=== PATIENT | female | born 2000 | race Caucasian/White ===

== ENCOUNTER 2024-01-08 00:26 | Emergency (ER) | payer OTHER, SELFPAY ==
[2024-01-08 00:40] VITALS: BP 120/76; PULSE 75; RESP 18; TEMP 36.7; O2SAT 98; BMI 26.8
== END 2024-01-08 07:15 | disposition left against medical advice (07) ==
PROVIDERS: Emergency Provider Emergency Medicine
DX: T14.8XXA Other injury of unspecified body region, initial encounter (principal); W55.03XA Scratched by cat, initial encounter; Y93.9 Activity, unspecified; Y92.9 Unspecified place or not applicable; Y99.9 Unspecified external cause status; Z53.21 Procedure and treatment not carried out due to patient leaving prior to being seen by health care provider
CPT/HCPCS: 99281

== ENCOUNTER 2024-10-01 10:05 | Outpatient (AMB) | payer OTHER, SELFPAY ==
--- NOTE | 2024-10-01 10:08 | MHC.PC.OV ---
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 Intake Note: Pt is here today as a New Patient to [facility]/PE Is last menstrual period known: Yes Last menstrual period: 09/19/24 Allergies No Known Allergies Allergy (Verified 10/01/24 10:28) Medication List - Last Reconciled 10/01/24 by Lesley Hopper MD norethindrone ac-eth estradiol 1-20 mg-mcg () 1 tab PO DAILY Tobacco use date assessed: 10/01/24 Dental Screening Dental Screen Date: 10/01/24 Did you have a dental visit in the last 12 months?: Yes Did you have a dental problem in the last 6 months where you did not have access to dental care?: No Was dental information given to patient?: Patient has dentist HPI WATER 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 She recently moved here from [place], is in the . She has been feeling well with no complaints at present time, requesting referral to an OBGYN. [facility] Medical History Uses control Surgical History (Updated 10/01/24 @ 10:33 by Lesley Hopper MD) No pertinent past surgical history Family History (Updated 10/01/24 @ 10:35 by Lesley Hopper MD) Father Mental health disorder Alcoholism Mother Graves disease Sister Hypothyroidism (acquired) Social History (Updated 10/01/24 @ 10:37 by Lesley Hopper MD) Housing: House Patient Tobacco Use Status: Never used Tobacco e-Cigarette/Vaping Use: Never Used service: No Current occupational status: employed Current occupation: Works for [employer] Cognitive needs: No Hearing needs: No Vision needs: Yes Female Reproductive History Menstrual Date of last menstrual period: 09/19/24 control method: pills Other: pap done in [facility] 09/2023 Questionnaire PHQ-9 Over the last 2 weeks, how often have you been bothered by any of the following problems? 1. Little interest or pleasure in doing things: not at all 2. Feeling down, depressed, or hopeless: not at all 3. Trouble falling or staying asleep, or sleeping too much: not at all 4. Feeling tired or having little energy: several days 5. Poor appetite or overeating: not at all 6. Feeling bad about yourself - or that you are a failure or have let yourself or your family down: not at all 7. Trouble concentrating on things, such as reading the newspaper or watching television: not at all 8. Moving or speaking so slowly that other people could have noticed. Or the opposite - being so fidgety or restless that you have been moving around a lot more than usual: not at all 9. Thoughts that you would be better off or of hurting yourself in some way: not at all Total score: 1 Depression Screening Interpretation: Negative Depression Screening Done: Yes Source: Developed by Drs. Dion Boone, Patty Pisano, Alejandro Tracy and colleagues, with an educational diana from [employer]. Thrive Questionnaire Date Thrive assessed: 09/24/24 I am a: Patient What is your living situation today?: I have a steady place to live Within the past 12 months, did the food you bought not last and you didn't have the money to get more?: Never true Within the past 12 months, did you worry whether your food would run out before you got money to buy more?: Never true Do you have trouble paying for medicines?: No Do you have trouble getting transportation to medical appointments?: No Do you have trouble paying your heating and electricity bill?: No Do you have trouble taking care of your child, family member or friend?: No Do you have trouble with day-to-day activities such as bathing, preparing meals, shopping, managing finances, etc.?: No Are you currently unemployed and looking for a job?: No Are you interested in more education?: No Please select the resources that you would like help with: None Currently or been in a relationship where the following occur: I choose not to answer THRIVE Score: 0 AUDIT C Alcohol Use Questionnaire (AUDIT-C) 1. How often do you have a drink containing alcohol?: Never 3. How often do you have six or more drinks on one occasion?: Never Total Score: 0 CADENCE-7 AMB Questionnaire CADENCE-7 Date CADENCE - 7 assessed: 10/01/24 Feeling nervous, anxious, or on edge: 0 = Not at all Not being able to stop or control worryin = Not at all Worrying too much about different things: 0 = Not at all Trouble relaxin = Not at all Being so restless that it is hard to sit still: 0 = Not at all Becoming easily annoyed or irritable: 0 = Not at all Feeling afraid as if something awful might happen: 0 = Not at all Total CADENCE-7 score (0-4 normal; 5-9 mild; 10-14 moderate; 15-21 severe): 0 Source: Developed by Drs. Dion Boone, Patty Pisano, Alejandro Tracy and colleagues, with an educational diana from [employer]. CADENCE-7 Assessment Billing CADENCE-7 Assessment Tool: CADENCE-7 Assessment 78564 Review of Systems Const Denies body aches, Denies fatigue, Denies fever(s), Denies headache(s) and Denies weakness Eyes Denies change in vision, Denies eye discharge and Denies itchy eyes ENT Denies dizziness, Denies headache(s), Denies nasal congestion and Denies nasal discharge Card Denies chest pain, Denies lightheadedness, Denies palpitations and Denies dyspnea Resp Denies cough and Denies dyspnea GI Denies abdominal pain, Denies change in bowel habits and Denies heartburn Denies hematuria, Denies urinary frequency, Denies dysuria and Denies urinary urgency Musc Reports no additional complaints Skin/Breast Denies breast pain, Denies breast mass, Denies lesions and Denies rash Neuro Denies dizziness, Denies headache(s) and Denies weakness Psych Reports no additional complaints Endo Denies fatigue, Denies polydipsia, Denies polyuria and Denies palpitations Sunny/Lymph Denies easy bruising Aller/Immun Denies itchy eyes and Denies seasonal rhinorrhea Physical exam (Primary Care) Vital Signs: Last Vital Signs Temp 98.3 F 10/01/24 10:11 Pulse 98 10/01/24 10:11 Resp 16 10/01/24 10:11 BP 90/70 10/01/24 10:11 Pulse Ox 99 10/01/24 10:11 Oxygen Delivery Method Room Air 02/26/25 10:11 BMI result Body Mass Index 28.3 Tobacco/Smoking Status: Tobacco use Status Tobacco use date assessed 10/01/24 10/01/24 10:17 Patient Tobacco Use Status Never used Tobacco 10/01/24 10:37 e-Cigarette/Vaping Use Never Used 10/01/24 10:37 PHQ-9: PHQ-9 Score PHQ-9: Total score 1 10/05/24 16:03 Depression Screening Interpretation: Negative Thrive Assessment: Date of Thrive Assessment Date Thrive assessed 09/24/24 10/01/24 10:09 Currently or been in a relationship where the following occur: I choose not to answer Advance Care Planning discussion: Completed/Scanned Date of discussion: 10/01/24 Who was present: Patient Forms completed: Health Care Proxy Time spent: 16-45 minutes Actual minutes spent: 2 Const General: no acute distress and alert Orientation/consciousness: patient oriented x3 HENMT Head: Yes normocephalic Ears: external ears normal, TM's normal bilaterally and EAC's normal General nose exam: Normal external nose present and No nasal discharge present Face and sinus: Yes face symmetric Mouth: Normal oral and palatal mucosa present, oropharynx normal and moist mucous membranes Eyes General: appearance normal, both eyes and all related structures Eyelids: Yes eyelids normal Conjunctivae: conjunctivae normal Sclerae: sclerae normal Pupils: Equal, round and reactive pupils present EOM: EOMs intact bilaterally Neck Neck: Yes full ROM, Yes no lymphadenopathy and Yes supple Thyroid: Thyroid normal Chest Breast/axilla palpation: normal palpation of the breasts Resp Effort & Inspection: normal respiratory effort and able to speak in complete sentences Auscultation: clear to auscultation bilaterally Cardio Rate: regular rate Rhythm: regular rhythm Heart sounds: S1 normal heart sound present and S2 normal heart sound present GI Palpation (GI): Soft to palpation, nontender, no guarding and no masses Auscultation: normal bowel sounds General: Yes no CVA tenderness Back/Spine/Pelvis Back: no CVA tenderness and No back tenderness Skin General skin exam: no rashes or lesions noted Neuro General: patient oriented x3, gait normal, moves all extremities, Normal light touch and pain sensation, no focal motor deficits and CN's II-XI intact bilaterally Cranial nerves: Yes Equal, round and reactive pupils present Cognition (Neuro): normal cognition Gait exam (Neuro): Normal gait present Motor exam (neuro): 5/5 motor strength present throughout Extrem General: Yes normal to inspection, Yes full ROM, Yes no joint enlargement, Yes no pedal edema and Yes normal gait Psych Appearance: grossly normal and well kempt Mental Status: mental status grossly normal Speech and movement: Normal speech and movement present Affect: normal affect Attitude: cooperative Thought process: Normal thought process present Thought content: Normal thought content present Coding Level of Care Code New Pt Prev Care 18-39yr([id number] Diagnoses Annual visit for general adult medical examination with abnormal findings Z00.01 Uses control Z78.9 Screening for malignant neoplasm of cervix Z12.4 Encounter for counseling regarding advance directives Z71.89 Additional Codes CADENCE-7 Assessment Billing - CADENCE-7 Assessment Tool: CADENCE-7 Assessment 80715 ([id number]) Vital Signs *Quality* - Advance Care Planning discussion: Completed/Scanned ([id number]) Vital Signs *Quality* - Time spent: 16-45 minutes ([id number]) Assessment & Plan Assessment & Plan (1) Annual visit for general adult medical examination with abnormal findings: Code(s): Z00.01 - Encounter for general adult medical examination with abnormal findings Plan: Will check appropriate labs. Recommended dental visit every 6 months and regular eye exams, at least every 2 years. Take adequate calcium in diet and vitamin-D 3 at 2000 IU per cap once a day, in addition to weight-bearing exercises to help maintain good muscle tone and weight control. Instructed to do self-breast exam, and recommended to get yearly mammogram, starting at age 40. Referred to [facility] for her routine Pap and pelvic exam and for surveillance on control pills . Patient received her flu vaccine in [place] in 04/25/2024. Did not get any further COVID boosters, up-to-date with her Tdap. (2) Uses control: Code(s): Z78.9 - Other specified health status Category: Social Hx Plan: Currently on control pills, advised to wear travel compression socks when going on long plane rides or car rides due to increased risk for getting blood clots (3) Screening for malignant neoplasm of cervix: Code(s): Z12.4 - Encounter for screening for malignant neoplasm of cervix Plan: Referred to [facility] for her routine Pap and pelvic exam (4) Encounter for counseling regarding advance directives: Code(s): Z71.89 - Other specified counseling Plan: Initiated the conversation about Advanced Directives. Advanced Directives help patients prepare for current and future decisions about their medical treatment and place of care. Discussed with patient that it is a process where a patients current condition and prognosis are reviewed, their wishes for information regarding their illness are elicited, and likely medical dilemmas are presented and options discussed. Healthcare proxy form completed today. The form can be amended as needed, reviewed yearly and make changes as needed Orders: Orders Complete Blood Count Auto Diff 10/01/24 Z00.01 - Encounter for general adult medical examination with abnormal findings, Z71.89 - Other specified counseling, Z78.9 - Other specified health status IRON PROFILE 10/01/24 Z00.01 - Encounter for general adult medical examination with abnormal findings, Z71.89 - Other specified counseling, Z78.9 - Other specified health status Lipid Panel 10/01/24 Z00.01 - Encounter for general adult medical examination with abnormal findings, Z71.89 - Other specified counseling, Z78.9 - Other specified health status Comprehensive [place]. Panel Fast 10/01/24 Z00.01 - Encounter for general adult medical examination with abnormal findings, Z71.89 - Other specified counseling, Z78.9 - Other specified health status Vitamin D 25-OH Total 10/01/24 Z00.01 - Encounter for general adult medical examination with abnormal findings, Z71.89 - Other specified counseling, Z78.9 - Other specified health status Referrals [facility] Referral Z00.01 - Encounter for general adult medical examination with abnormal findings, Z12.4 - Encounter for screening for malignant neoplasm of cervix, Z71.89 - Other specified counseling, Z78.9 - Other specified health status
[2024-10-01 10:11] VITALS: BP 90/70; PULSE 98; RESP 16; TEMP 36.8; O2SAT 99; BMI 28.3
--- OUTSIDE RECORDS SUMMARY | 2024-10-01 12:09 | XMS_ITS | Continuity of Care Document ---
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 It does not include entries that were removed or entered in error. Problem Status Onset Date Problem Type Date of Resolution Comments Source Bilateral myopia of eyes Active Condition 0006C-Joint [facility] Bilateral regular astigmatism Active Condition 0006C-Joint B [facility] Contraception Active Condition [facility] Generalized body aches Active Condition [facility] Loss of scalp hair Active Condition [facility] Morbid obesity Active Condition Unknown Organization Vitreous floaters of left eye Active Condition 0006C-Joint B [facility] Well female adult Active Condition 0094 C-[facility] Myopia, bilateral Active Condition [facility] Regular astigmatism, bilateral Active Condition [facility] Pain in right knee Active Condition [facility] Medications Combined list of outpatient medications from [facility] and [facility] facilities.Medications provided include 1) outpatient medications from the last 15 months, and 2) patient-reported medications. Medication Details Route Status Patient Instructions Prescription Expires Prescription Number Last Dispense Date Ordering Provider Order Date Order Qty Source AMOX TR-POTASSIU M CLAVULANATE (AMOXICILLI N/POTASSIUM CLAV), 875-125 MG, TABLET, ORAL, [facility], 20 ea. BOTTLE Active [id number] 4 2023 14 Pharmac y Data Transac tion Service Facilit y ibuprofen 0 total refill(s ), Audrey acosta Discont inued 12/22/20222022 0006C-[facility]int Base [facility] ibuprofen 600 mg oral tablet 1 tab(s), Oral, BID, # 40 tab(s), 0 total refill(s ), Maintena karla, Pharmacy : [facility] Oral (given by mouth) Ordered 3 2022 40.0 0094C[facility] Microgestin 1/20 oral tablet 1 tab(s), Oral, Daily, # 84 tab(s), 3 total refill(s ), Maintena nee, Pharmacy : [facility] Oral (given by mouth) Discont inued 06/27/2022 2 2021 84.0 0006C[facility] oral tablet 1 tab(s), Oral, Daily, # 84 tab(s), 3 total refill(s ), Maintena nee, Pharmacy : [facility] Oral (given by mouth) Ordered 3 2021 84.0 0094C[facility] Microgestin 1/20 oral tablet tab(s), Oral, Daily, 0 total refill(s ), Maintena nce Oral (given by mouth) Discont inued 12/20/20202020 [facility] 1/20 oral tablet 1 tab(s), Oral, Daily, # 84 tab(s), 3 total refill(s ), [facility] Oral (given by mouth) Ordered 09/21/2024 4 2023 84.0 0094C[facility] Microgestin 1/20 oral tablet 1 tab(s), Oral, Daily, # 84 tab(s), 3 total refill(s ), [facility] Oral (given by mouth) Discont inued 03/17/2022 2 2021 84.0 0006C[facility] predniSONE 50 mg oral tablet 1 tab(s), Oral, Daily, X 3 days, # 3 tab(s), 0 total refill(s ), Acute, Pharmacy : [facility] Oral (given by mouth) Complet ed 12/25/2022 3 2022 3.0 0094C[facility] Allergies, Adverse Reactions, Alerts Combined list of allergies from [facility] facilities. It does not include entries that were removed or entered in error. Substance Category Reaction Severity Reaction type Status Date Reported Comments Source No Known Allergies Drug allergy (disorder) active 04/02/2023 [facility] Immunizations Combined list of available immunizations from the Department of Defense and Veterans Affairs facilities. Immunization Series Date Given Administered By Site Reaction Lot Number CVX Code Drug Central Lab Technician Status Comments Source COVID Vaccine Pfizer 2020 FLORYRYSHAILESHINNE Y Shoul elsi, left (delt oid) [id number] PFIZER complet ed COVID Vaccine Pfizer 01/14/21 Given 0006C-[facility] COVID Vaccine Pfizer 2020 VICAKINPMCGEO RGE Shoul elsi, right (delt oid) [id number] PFIZER complet ed COVID Vaccine Pfizer 12/24/20 Given 0006C-[facility] [facility] Results Combined list of recent chemistry, hematology and other laboratory results from [facility] and [facility], ranging from 15 months to all on record, depending upon the facility. Order Name Results Value Reference Range Date Interpretation Specimen Comments Source Molecula r Infectio us Disease GC NAAT Not Detected 10 (09/20/23 11:07 AM) 09/20 N Interpretiv e Data: NAAT = Nucleic acid amplificati on test Reference Value: Not Detected A Detected result indicates that DNA of Chlamydia trachomatis (CT) and/or Neisseria gonorrhoeae (GC) is present in the specimen tested and strongly supports a diagnosis of chlamydial/ gonorrheal infection. A Not Detected result indicates that DNA for CT and/or GC was not detected in the specimen. An indetermina te result indicates that a specimen contains inhibitory substances that prevent nucleic acid target extraction and/or amplificati on and detection. See the Limitation s section in the Lab Guide for known interfering substances. The performance of this assay has not been evaluated in adolescents less than 14 years of age. This report is intended for use in clinical monitoring or management of patients; it is not intended for use in medico-lega l application s. The assay has not been evaluated with patients who are currently being treated with antimicrobi al agents active against CT or GC as well as patients with a history of hysterectom y. In general, this assay should not be used to assess therapeutic success or failure since nucleic acids from these organisms may persist for 3 weeks or more following antimicrobi al therapy. The predictive value of an assay depends on the prevalence of the disease in any particular population. In settings with a high prevalence of sexually transmitted disease, positive assay results have a high likelihood of being true positives. In settings with a low prevalence of sexually transmitted disease, or in any setting in which a patient's clinical signs and symptoms or risk factors are inconsisten t with gonococcal or chlamydial urogenital infection, positive results should be carefully assessed and the patient retested by other methods (e.g., culture for Neisseria gonorrhoeae ), if appropriate . The prevalence for all specimens tested in this laboratory is 5% for CT and 0.5% for GC. At this prevalence, the [facility] r estimates 5% the overall sensitivity and specificity for CT to be 94.1% and 99.6% respectivel y. For GC the sensitivity and specificity rates are 97.1% and he 99.8%. The Positive Predictive Value and the Negative Predictive Value calculated by the [facility] r using the above clinical trial data are 92% and 99.7% for CT and 82% and 100% for GC. Results should be interpreted in conjunction with other laboratory and clinical information . A negative result does not exclude the possibility of infection. Improper specimen collection, concurrent antibiotic therapy, presence of inhibitors, or low numbers of organisms in the specimen may cause false-negat jasmyne results. If clinical indications strongly suggest gonococcal or chlamydial infection, additional specimens should be collected for testing. Testing of urine specimens with this method is not intended to replace a cervical exam and endocervica l sampling for diagnosis of urogenital infection. A first catch urine specimen is acceptable but may detect up to 10% fewer infections when compared with vaginal and endocervica l swab specimens. Methodology : NAAT Notifiable result/cond ition for Local/State PH department. Notify your Local public health immediately for proper notificatio n. 56[facility]A-[place] [facility] EPILAB 24tidyula r Infectio us Disease Chlamydia NAAT Not Detected (09/20/23 11:07 AM) 09/20 N 56[facility]A-[place] [facility] EP[facility]AB AP Specimen s AP Cyto JOB CHECKER Patient: Crow Foley Specimen #: [id number] Patholog ist: Accessio n: 4 [facility] DEPARTME NT OF PATHOLOG Y [address] [place] [address] Cytology Gynecolo gic Report Patient: Crow Foley Specimen #: [id number] [facility] ID:: [id number] Encounte r #: [id number] Taken: 4 11:02 /Age: 6 2000 (Age: 23) Received : 4 11:22 Physicia n(s:): DESTINY Garcia NURSE Reported : 4 Specimen (s) Received Taken Rec Thin Prep - Cervical w/ reflex HPV 4 11:02 4 11:22 Final Diagnosi s Thin Prep - Cervical w/ reflex HPV: Satisfac tory for evaluati on; endocerv ical componen t present. Negative for intraepi thelial lesion or malignan cy. This Pap test was evaluate d with the assistan ce of the Thin Prep Imaging System. Elect ronicall y Signed by Carol Rubin * Clinical Diagnosi s and History WNL Prior History Signed Out Specimen # Interpre tation 12/28/19 21 [id number] Negative for Intraepi thlial Lesion or Malignan cy CPT Codes: A; 30384 The Pap test is a screenin g test for precurso rs of squamous cell carcinom a with an irreduci ble false negative rate of around 5%. It is not designed to detect glandula r lesions. A negative test does not ensure that no disease is present. 09/20-[facility] Chemistr y T4 Free Direct.LC 1.09 ng/dL 04/02 Result Comment: Performed At: [facility] [address] [place], [place] [id number] Dony Gould MD Ph:[phone] 00 -[facility] Chemistr y TSH LC 2.170 uIU/mL 04/02-[facility] Chemistr y T3 Total 1.64 ng/mL 0.80 - 2.00 04/02 N Interpretiv e Data: METHODOLOGY : Testing performed by electrochem ilLaclede Groupn t immunoassay (ECLIA). 5600A-[place] [facility] EPILAB Hematolo gy WBC 5.2 10^3/uL 4.5 - 11.0103 06/27 N [facility] Hematolo gy RBC 4.74 10^6/uL 3.97 - 5.69303 06/27 N [facility] Hematolo gy MCHC 34.0 g/dL 32.0 - 36.0 06/27 N [facility] Hematolo gy MPV 8.5 fL 6.8 - 10.2 06/27 N [facility] Hematolo gy RDW 12.7 % 12.0 - 14.6 06/27 N [facility] Hematolo gy Platelets 226 10^3/uL 150 - 065255 06/27 N [facility] Hematolo gy MCV 86.6 fL 80.0 - 100.0 06/27 N [facility] Hematolo gy MCH 29.4 pg 28.0 - 34.0 06/27 N [facility] Hematolo gy Hemoglobin 13.9 g/dL 12.0 - 16.0 06/[address] Hematolo gy Hematocrit 41.1 % 36.0 - 46.0 06/27 N [facility] Chemistr y TIBC LC 410 ug/dL 06/[address] Chemistr y Iron Sat LC 25 % 06/27 Result Comment: Performed At: 01 [facility] [address], [place] [id number] Dony Gould MD Ph:[phone] [facility] Chemistr y Iron Lvl.LC 102 ug/dL 06/[address] Chemistr y UIBC LC 308 ug/dL 06/[address] Hematolo gy Monocyte % Auto 4.3 % 3.5 - 11.4 06/[address] Hematolo gy Eosinophil % Auto 1.8 % 0.0 - 5.0 06/27 [facility] Hematolo gy Lymphocyte % Auto 33.1 % 15.8 - 44.5 06/27 [facility] Hematolo gy Neutrophil % Auto 60.2 % 40.0 - 80.0 06/27 [facility] Hematolo gy [place] Absolute 0.2 0.1 - 0.8 06/27 [facility] Hematolo gy Eos Absolute 0.1 10^3/uL 0.0 - 0.4103 06/27 [facility] Hematolo gy Neutro Absolute 3.2 10^3/uL 1.8 - 7.0103 06/27 [facility] Hematolo gy Lymph Absolute 1.7 10^3/uL 0.8 - 3.2103 06/27 [facility] Hematolo gy Basophil % Auto 0.6 % 0.0 - 2.7 06/27 [facility] Hematolo gy Baso Absolute 0.0 x10^3/mc L 0.0 - 0.2103 06/27 [facility] Chemistr y Thyrotropi n.EPI 1.250 uIU/mL 06/27 Result Comment: INTERPRETAT ION(S): Recommend: TPO/Thyrope roxidase Antibody when TSH result is > 4.2 uIU/mL Performed by: Epidmiology Laboratory Service [facility] [address] [place] [id number] [facility] Chemistr y Vit B12 Lvl.LC 321 pg/mL 06/27 [facility] Chemistr y Folate.LC 10.5 ng/mL 06/27 Result Comment: A serum folate concentrati on of less than 3.1 ng/mL is considered to represent clinical deficiency. Performed At: 01 [facility] [address], [place] [id number] Dony Gould MD Ph:[phone] [facility] Chemistr y Potassium Lvl 4.4 mmol/L 3.5 - 5.1 06/[address] Group Chemistr y Alk Phos 57.0 U/L 38.0 - 126.0 06/[address] Chemistr y Albumin 4.3 g/dL 3.5 - 5.0 06/[address] Chemistr y Chloride 102 mmol/L 98 - 107 06/[address] Chemistr y CO2 30.0 mmol/L 22.0 - 30.0 06/[address] Chemistr y BUN 11.0 mg/dL 7.0 - 17.0 06/[address] Chemistr y Bilirubin Total 0.40 mg/dL 0.20 - 1.30 06/[address] Chemistr y Sodium 139 mmol/L 137 - 145 06/[address] Chemistr y Calcium 10.5 mg/dL 8.4 - 10.2 06/[address] Chemistr y ALT 12.0 U/L 0.0 - 35.0 06/[address] Chemistr y Glucose Lvl 91 mg/dL 74 - 106 06/[address] [place] [address] Chemistr y AST 23 U/L 14 - 36 06/[address] [place] [address] Chemistr y Protein Total 8.2 g/dL 6.0 - 8.3 06/[address] Chemistr y Globulin 3.9 2.4 - 3.5 06/[address] Chemistr y A/G Ratio 1.1 06/[address] Chemistr y AGAP 11.4 10.0 - 20.0 06/[address] Chemistr y Creatinine Level 0.80 mg/dL 0.52 - 1.04 06/[address] Chemistr y eGFR CKD EPI 106 mL/min/1 .73_m2 06/27 Interpretiv e Data: Estimated Glomerular Filtration Rate (eGFR) calculated using the 2020 Chronic Kidney Disease-Epi demiology (CKD-EPI) Collaborati on creatinine equation; units of measure are mL/min/1.73 m2. Results are only valid for adults (e18 years) whose serum creatinine is in steady state.? eGFR calculation s are not valid for patients with acute kidney injury and for patients on dialysis. ?Creatinine -based estimates of kidney function may also be inaccurate in patients with reduced creatinine generation due to decreased muscle mass (e.g., malnutritio n, severe hypoalbumin emia, sarcopenia, chronic neuromuscul ar disease, amputations , severe heart failure or liver disease) and in patients with increased creatinine generation due to increased muscle mass (e.g., muscle builders, anabolic steroids) or increased dietary intake. As drug clearance is proportiona l to total GFR and not GFR indexed to body surface area (BSA), in individuals with a BSA substantial ly different than 1.73 m2, drug dosing should be based the reported eGFRvalue de-indexed from BSA by multiplying by the individual s BSA and dividing by 1.73. CKD is diagnosed based on abnormaliti es of kidney structure or function, present for >3 months, with implication s for health and disease. CKD is classified and staged based on cause, eGFR and albuminuria (quantified as urine albumin to creatinine ratio). An eGFR >60 mL/min/1.73 m2 in the absence of increased urine albumin excretion or structural abnormaliti es does not represent CKD.eGFR (mL/min/1.7 3 m2) CKD stage Interpretat ion e90 G1 Normal 60-89 G2 Mild decrease 45-59 G3A Mild to moderate decrease 30-44 G3B Moderate to severe decrease 15-29 G4 Severe decrease <15 G5 Kidney failure 0094A-[facility] AP Specimen s Cytologic JOB CHECKER.[facility] Col: [id number] THIN PREP-CE( LBC CERVICAL ) Hcp: Mel MACEDO Loc: REMOTE L Ranjanai eugenia Lab: [place] [address] [id number] BAG [id number] SL Accessio n #: [id number] CYTO JOB CHECKER C:[id number] [facility] Report Patient: CROW FOLEY Specimen #: [id number] Patholog ist: Accessio n: 1 [facility] DEPARTME NT OF PATHOLOG Y [address] [place] [address] Cytology Gynecolo gic Report Patient: CROW FOLEY Specimen #: [id number] [facility] ID:: [id number] /Age: 6 2000 (Age: 20) Reported : 1 Physicia n(s:): BEHZAD GARZA Specimen (s) Received LBC CERVICAL (WITH REFLEX HPV), THINPREP VIAL Final Diagnosi s LBC CERVICAL (WITH REFLEX HPV), THINPREP VIAL: Satisfac tory for evaluati on; endocerv ical componen t present. Negative for intraepi thelial lesion or malignan cy. This Pap test was evaluate d with the assistan ce of the Thin Prep Imaging System. Elect ronicall y Signed by Angel Coombs The Pap test is a screenin g test for precurso rs of squamous cell carcinom a with an irreduci ble false negative rate of around 5%. It is not designed to detect glandula r lesions. A negative test does not ensure that no disease is present. CPT Codes: 55210-FA ;89418 12/20 0006A-[facility] Molecula r Infectio us Disease GC NAAT.EPI NEGATIVE 12/20 Result Comment: INTERPRETAT ION(S): NAAT = Nucleic acid amplificati on test A positive result indicates that DNA of Chlamydia trachomatis (CT) and/or Neisseria gonorrhoeae (GC) is present in the specimen tested and strongly supports a diagnosis of chlamydial/ gonorrheal infection. A negative result indicates that DNA for CT and/or GC was not detected in the specimen. The performance of this assay has not been evaluated in adolescents less than 14 years of age. This report is intended for use in clinical monitoring or management of patients; it is not intended for use in medico-lega l application s. The assay has not been evaluated with patients who are currently being treated with antimicrobi al agents active against CT or GC as well as patients with a history of hysterectom y. In general, this assay should not be used to assess therapeutic success or failure since nucleic acids from these organisms may persist for 3 weeks or more following antimicrobi al therapy. The predictive value of an assay depends on the prevalence of the disease in any particular population. In settings with a high prevalence of sexually transmitted disease, positive assay results have a high likelihood of being true positives. In settings with a low prevalence of sexually transmitted disease, or in any setting in which a patient's clinical signs and symptoms or risk factors are inconsisten t with gonococcal or chlamydial urogenital infection, positive results should be carefully assessed and the patient retested by other methods (e.g., culture for Neisseria gonorrhoeae ), if appropriate . The prevalence for all specimens tested in this laboratory is 5% for CT and 0.5% for GC. At this prevalence, the [facility] r estimates the overall sensitivity and specificity for CT to be 94.1% and 99.6% respectivel y. For GC the sensitivity and specificity rates are 97.1% and 99.8%. The Positive Predictive Value and the Negative Predictive Value calculated by the [facility] r using the above clinical trial data are 92% and 99.7% for CT and 82% and 100% for GC. Results should be interpreted in conjunction with other laboratory and clinical information . A negative result does not exclude the possibility of infection. Improper specimen collection, concurrent antibiotic therapy, presence of inhibitors, or low numbers of organisms in the specimen may cause false-negat jasmyne results. If clinical indications strongly suggest gonococcal or chlamydial infection, additional specimens should be collected for testing. A result of inconclusiv e indicates that a new specimen should be collected. Testing of urine specimens with this method is not intended to replace a cervical exam and endocervica l sampling for diagnosis of urogenital infection. A first catch urine specimen is acceptable but may detect up to 10% fewer infections when compared with vaginal and endocervica l swab specimens. Methodology : NAAT Notifiable result/cond ition for Local/State department. Notify your local public health immediately for proper notificatio n. Performed by: [facility]olog [facility] Bldg. [address] [address] [place] [address] 0006A[facility] [place] Disease Chlamydia NAAT.EPI NEGATIVE 12/20 Result Comment: INTERPRETAT ION(S): 0006A-[facility] [employer] [facility] [place] us Disease Lima Species Negative 7 (12/20/20 11:02 AM) 12/20 N Interpretiv e Data: A positive result for Lima, Gardnerella and/or Trichomonas means nucleic acid for Lima species (C. albicans, C. glabrata, C. kefyr, C. krusei, C. parapsilosi s, or C. tropicalis) , G. vaginalis, and/or T. vaginalis, respectivel y, is present in the sample and indicates the patient has candidiasis , bacterial vaginosis, and/or trichomonia sis. Simultaneou s infections by more than one organism are common; therefore, a positive test indicating the presence of one of the above does not rule out the presence of other organisms. Women with a vaginal discharge should be evaluated for risk factors of cervicitis and pelvic inflammator y disease, and if present, evaluated for other organisms, including Neisseria gonorrhoeae and Chlamydia trachomatis . Negative results for Lima, Gardnerella or Trichomonas tests suggest the patient does not have candidiasis , bacterial vaginosis and/or trichomonia sis, respectivel y. The performance of this test on patient specimens collected during or immediately after antimicrobi al therapy is unknown. The presence or absence of Lima species, G. vaginalis or T. vaginalis nucleic acid cannot be used as a test for therapeutic success or failure. The Affirm VPIII Microbial Identificat ion Test is for use with vaginal swab specimens; samples must arrive in the lab within 1 hour of collection. Test results may be affected by improper specimen collection, handling and/or storage conditions. The diagnostic value of this assay, although suggestive, is not diagnostic. Results should be interpreted in conjunction with other clinical and laboratory data available to the clinician such as pH, amine odor, clue cells and vaginal discharge characteris tics. 0006A-[employer] [facility] Disease Gardnerell a vaginalis Negative 8 (12/20/20 11:02 AM) 12/20 N Interpretiv e Data: A positive result for Lima, Gardnerella and/or Trichomonas means nucleic acid for Lima species (C. albicans, C. glabrata, C. kefyr, C. krusei, C. parapsilosi s, or C. tropicalis) , G. vaginalis, and/or T. vaginalis, respectivel y, is present in the sample and indicates the patient has candidiasis , bacterial vaginosis, and/or trichomonia sis. Simultaneou s infections by more than one organism are common; therefore, a positive test indicating the presence of one of the above does not rule out the presence of other organisms. Women with a vaginal discharge should be evaluated for risk factors of cervicitis and pelvic inflammator y disease, and if present, evaluated for other organisms, including Neisseria gonorrhoeae and Chlamydia trachomatis . Negative results for Lima, Gardnerella or Trichomonas tests suggest the patient does not have candidiasis , bacterial vaginosis and/or trichomonia sis, respectivel y. The performance of this test on patient specimens collected during or immediately after antimicrobi al therapy is unknown. The presence or absence of Lima species, G. vaginalis or T. vaginalis nucleic acid cannot be used as a test for therapeutic success or failure. The [place] VPIII Microbial Identificat ion Test is for use with vaginal swab specimens; samples must arrive in the lab within 1 hour of collection. Test results may be affected by improper specimen collection, handling and/or storage conditions. The diagnostic value of this assay, although suggestive, is not diagnostic. Results should be interpreted in conjunction with other clinical and laboratory data available to the clinician such as pH, amine odor, clue cells and vaginal discharge characteris tics. 0006A-[facility] Infectio us Disease Trichomona s vaginalis Negative 9 (12/20/20 11:02 AM) 12/20 N Interpretiv e Data: A positive result for Lima, Gardnerella and/or Trichomonas means nucleic acid for Lima species (C. albicans, C. glabrata, C. kefyr, C. krusei, C. parapsilosi s, or C. tropicalis) , G. vaginalis, and/or T. vaginalis, respectivel y, is present in the sample and indicates the patient has candidiasis , bacterial vaginosis, and/or trichomonia sis. Simultaneou s infections by more than one organism are common; therefore, a positive test indicating the presence of one of the above does not rule out the presence of other organisms. Women with a vaginal discharge should be evaluated for risk factors of cervicitis and pelvic inflammator y disease, and if present, evaluated for other organisms, including Neisseria gonorrhoeae and Chlamydia trachomatis . Negative results for Lima, Gardnerella or Trichomonas tests suggest the patient does not have candidiasis , bacterial vaginosis and/or trichomonia sis, respectivel y. The performance of this test on patient specimens collected during or immediately after antimicrobi al therapy is unknown. The presence or absence of Lima species, G. vaginalis or T. vaginalis nucleic acid cannot be used as a test for therapeutic success or failure. The [place] VPIII Microbial Identificat ion Test is for use with vaginal swab specimens; samples must arrive in the lab within 1 hour of collection. Test results may be affected by improper specimen collection, handling and/or storage conditions. The diagnostic value of this assay, although suggestive, is not diagnostic. Results should be interpreted in conjunction with other clinical and laboratory data available to the clinician such as pH, amine odor, clue cells and vaginal discharge characteris tics. 0006A-[facility] Vital Signs Combined list of inpatient and outpatient Vital Signs from Department of Defense and Veterans Affairs, ranging from 12 months to all on record, depending upon the facility. Vital Sign Value Date Comments Source Blood Pressure Manual Automatic 04/02/2023 12:29: [address] [place] [address] Temperature Tympanic 37 Ashanti 04/02/2023 12:29:[address] [place] [address] BP Site Left arm 04/02/2023 12:29:[address] [place] [address] Respiratory Rate 16 br/min 04/02/2023 12:29:[address] [place] [address] Mean Arterial Pressure, Calc 100 mm[Hg] 04/02/2023 12:29:[address] [place] [address] Peripheral Pulse Rate 79 bpm 04/02/2023 12:29: [address] [place] [address] Group Systolic Blood Pressure 131 mm[Hg] 04/02/20 23 12:29:[address] [place] [address] Group Diastolic Blood Pressure 84 mm[Hg] 023 12:29:[address] [place] [address] Group Systolic Blood Pressure 113 mm[Hg] 06/27/20 19:50:00 [id number] Diastolic Blood Pressure 73 mm[Hg] 022 19:50:00 [facility] BP Site Left arm 06/27/2022 19:50:00 [facility] Temperature Temporal Artery 36.2 Ashanti 06/27/2022 19:50:00 [facility] Mean Arterial Pressure, Calc 86 mm[Hg] 06/27/2022 19:50:00 [facility] Blood Pressure Manual Automatic 06/27/2022 19:50:00 [facility] Respiratory Rate 16 br/min 06/27/2022 19:50:00 [facility] Peripheral Pulse Rate 84 bpm 06/27/2022 19:50:00 [facility] Systolic Blood Pressure 117 mm[Hg] 12/23/19 19:45:00 [facility] Diastolic Blood Pressure 74 mm[Hg] 023 19:45:00 [facility] BP Site Left arm 12/22/2022 19:45:00 [facility] Temperature Temporal Artery 36.7 Sahanti 12/22/2022 19:45:00 [facility] Blood Pressure Manual Automatic 12/22/2022 19:45:00 [facility] Peripheral Pulse Rate 90 bpm 12/22/2022 19:45:00 [facility] Respiratory Rate 16 br/min 12/22/2022 19:45:00 [facility] Mean Arterial Pressure, Calc 88 mm[Hg] 12/22/2022 19:45:00 [facility] BP Site Right arm 09/20/2023 22:10:00 [facility] Systolic Blood Pressure 122 mm[Hg] 09/20/19 22:10:00 [facility] Diastolic Blood Pressure 79 mm[Hg] 024 22:10:00 [facility] Blood Pressure Manual Automatic 09/20/2023 22:10:00 [facility] Peripheral Pulse Rate 93 bpm 09/20/2023 22:10:00 [facility] Mean Arterial Pressure, Calc 93 mm[Hg] 09/20/2023 22:10:00 [facility] Respiratory Rate 14 br/min 09/20/2023 22:10:00 [facility] Temperature Oral 36.8 Ashanti 09/20/2023 22:10:00 [facility] Temperature Oral 36.6 Ashanti 12/20/2020 18:23:[address] [place] [address] Blood Pressure Manual Automatic 12/20/2020 18:23:[address] [place] [address] BP Site Right arm 12/20/2020 18:23:[address] [place] [address] Systolic Blood Pressure 130 mm[Hg] 12/21/19 18:23:[address] [place] [address] Diastolic Blood Pressure 86 mm[Hg] 021 18:23:[address] [place] [address] Respiratory Rate 20 br/min 12/20/2020 18:23:[address] [place] [address] Peripheral Pulse Rate 86 bpm 12/20/2020 18:23:[address] [place] [address] Mean Arterial Pressure, Calc 101 mm[Hg] 12/20/2020 18:23:[address] [place] [address] Respiratory Rate 14 br/min 07/09/2020 23:49:[address] [place] [address] Peripheral Pulse Rate 87 bpm 07/09/2020 23:49:[address] [place] [address] Mean Arterial Pressure, Calc 90 mm[Hg] 07/09/2020 23:49:[address] [place] [address] BP Site Right arm 07/09/2020 23:49:[address] [place] [address] Systolic Blood Pressure 112 mm[Hg] 07/09/20 20 23:49:[address] [place] [address] Diastolic Blood Pressure 79 mm[Hg] 020 23:49:[address] [place] [address] Blood Pressure Manual Automatic 07/09/2020 23:49:[address] [place] [address] Encounters Combined list of: 1) Encounters from Department of Veterans Affairs facilities going backup to the last 18 months, not all VA inpatient encounters are included; 2) Encounters from the Department of Defense facilities going backup to 280 months. Location Location Details Encounter Type Encounter Number Reason For Visit Attending Provider ADM Date DC Date Status Disposition Source [facility]) OUTPATIENT [id number] EFMP klarissa BATESKHADIJAH CHOWDHURY Vidya 07/21 Released w/o Limitations [facility]) [facility]) OUTPATIENT [id number] !EFMP HAMILTON MAIN 08/07 Released w/o Limitations [facility]) [facility] ) OUTPATIENT [id number] right knee pain JEMIMA PADILLA 10/08 Released w/o Limitations [facility]) [facility] ) TELE CONSULT [id number] Notes Entered by: BASILIO SELF ACE 13 Oct 2019 1318 ------- ------- ------- ------- -- JULITO BRAR 10/12 Other Not Elsewhere Classified [facility] ) TELE CONSULT [id number] Notes Entered by: RAJEEV PADGETT 03 Dec 2019 0926 ------- ------- ------- ------- -- NETWORK RESULTS PHYSICA L THERAPY 22 OCT 2019 LOOK IN LUCIO HUNTER 12/02 [facility] ) TELE CONSULT [id number] Notes Entered by: YASMANY COLE 12 Dec 2019 1124 ------- ------- ------- ------- -- MRI result SUDARSHAN ANDRADE 12/11 [facility]) [facility]) OUTPATIENT [id number] ESHA MOTA 01/07 Released w/o Limitations [facility] ptometr y Clinic [facility]) [facility]) TELE CONSULT [id number] Notes Entered by: ЕКАТЕРИНА BURNETT 28 Jan 2020 1439 ------- ------- ------- ------- -- JULITO HARMON 01/27 Other Not Elsewhere Classified [facility]) [facility]) OUTPATIENT [id number] Notes Entered by: HARLEY SMITH 28 Jan 2020 1632 ------- ------- ------- ------- -- JOY PEARCE 01/28 Sick at Home/Quarter s [facility]) [facility]) TELE CONSULT [id number] Notes Entered by: NATALIIA HOGUE 02 Feb 2020 0926 ------- ------- ------- ------- -- COVID-1 9 Lab Results TANIA HOGUE 02/01 Released to Self Care [facility] ) TELE CONSULT [id number] Notes Entered by: BASILIO SELF ACE 02 Feb 2020 1250 ------- ------- ------- ------- -- JULITO HARMON 02/01 Other Not Elsewhere Classified [facility]) [facility] ) OUTPATIENT [id number] Nausea after sleep [facility] 02/10 Released w/o Limitations [facility]) [facility](Ort hopedic Clinic) OUTPATIENT [id number] Pain in right knee PERLITA MATTHEW 02/10 Released w/o Limitations [facility](O rthoped ic Clinic) [facility] ) TELE CONSULT [id number] Notes Entered by: LISET LAYNE 08 Mar 2020 1811 ------- ------- ------- ------- -- Lab results BEHZAD LAWRENCE 03/09 [facility]) [facility] ) TELE CONSULT [id number] Notes Entered by: LISET LAYNE 22 Mar 2020 1302 ------- ------- ------- ------- -- Rad Results RADHA URIBE 03/22 Other Not Elsewhere Classified [facility](F [facility]) [facility](Gas troentero logy Clinic) OUTPATIENT [id number] Unspeci fied abdomin al pain ELOY SANTOS 03/24 Released w/o Limitations [facility](G astroen terolog y Clinic) [facility] ZEESHAN Garcia Between Visit [id number] 10/04 Discharge Disposition: Home or Self Care [facility] [place] Procedures Combined list of: 1) Procedures from Department of Veterans Affairs facilities going back up to thelast 18 months, not all VA non-surgical procedures are included; 2) All procedures from the Department of Defense facilities. Procedure Procedure Type Code Date Perfomer Comments Sourmario e No data available for this section Ambulato ry Pharmacy Non-Physician Phone Call To Patient/Provider Brief (5-10min) Non-Physician Phone Call To Patient/Provider Brief (5-10min) [id number] [facility] Ophthalmological New Patient Start Comprehensive Care Ophthalmological New Patient Start Comprehensive Care [id number] [facility] Determination Of Refractive State Determination Of Refractive State 48597 ESHA SANDOVAL DoD Waiver services; not otherwise specified (NOS) ELOY SANTOS DoD WAIVER SERVICES; NOT OTHERWISE SPECIFIED (NOS) 020 DoD TELE ASSESS & MGT SRV PROV QUAL NONPHYS HLTH CARE PRO TO EST PAT,PARENT,GUARD NOT ORIG REL ASSESS & MGT SRV PROV W/IN PREV 7 DAYS NOR LEAD ASSESS & MGT SRV/PX W/IN NXT 24 HR/SOON APT;5-10 MIN MED DIS 020 DoD TELE ASSESS & MGT SRV PROV QUAL NONPHYS HLTH CARE PRO TO EST PAT,PARENT,GUARD NOT ORIG REL ASSESS & MGT SRV PROV W/IN PREV 7 DAYS NOR LEAD ASSESS & MGT SRV/PX W/IN NXT 24 HR/SOON APT;5-10 MIN MED DIS 020 DoD DETERMINATION OF REFRACTIVE STATE 020 DoD TELE ASSESS & MGT SRV PROV QUAL NONPHYS HLTH CARE PRO TO EST PAT,PARENT,GUARD NOT ORIG REL ASSESS & MGT SRV PROV W/IN PREV 7 DAYS NOR LEAD ASSESS & MGT SRV/PX W/IN NXT 24 HR/SOON APT;5-10 MIN MED DIS 020 DoD Social History Combined list of available smoking, tobacco, and other social history from Department of Defense and Veterans Affairs facilities. Social History Type Response Date Comment Sour e Smoking Status Never (less than 100 in lifetime) 07/09/2020 Unknown Organization Sex Representation Female 03/16/2020 Unknow n Organization Sexual Orientation Ambula tory Pharmacy Gender identity Ambulator y Pharmacy This section is an empty social history section. DoD Assessment and Plan Combined list of future care activities from Department of Defense and Veterans Affairs facilities (e.g., assessment and plan notes, appointments, orders, and referrals). Additional future care activities may be listed in the Plan of Care section. Result Assessment and Plan Date Source Assessment and Plan Extracted from:Title : JOB CHECKER: PAP, BC refill Author: DESTINY BARRIOS Date: 09/20/23 Encounter for screening for infections with a predominantly sexual mode of transmission -Screening per CDC recommendations ? -Pt aware she will be contacted if results return positive from labs collected at visit today, otherwise pt informed labs visible on Revision3 online. -Verbalized understanding.? ? Ordered: Chlamydia/GC NAAT Panel ? Encounter for screening for malignant neoplasm of cervix Pap HX: December 2020: NILM/-- ? -She was instructed?that if her pap smear results are normal she will receive a message in Revision3, ? encouraged to register on the platform if she has not already done so. -If her results return abnormal she will be contacted by PHONE with a plan of care -Informed that at a minimum she will need a WWE in 1-3 years to screen for ovarian and breast cancers. ? ? -Reviewed findings from today's exam and discussed presumptive plan considering her history with NORMAL pap smears, her next PAP will be due in?3 years,? ? ?Fe?2026.? ? She verbalized understanding of information/results and had no further questions or concerns. ? Ordered: AP Cytology JOB CHECKER ? Encounter for surveillance of contraceptive pills -Pt reports satisfaction with OCP regimen and desires a refill. ? -Reviewed counseling on the risks and benefits of OCPs.? -Pt?aware of?the potential side effects -She was instructed to return to the clinic if experiences side effects.?? -Aware that she should use condoms regardless if not in a committed relationship as OCPs do not protect against STIs. ? -Patient verbalized understanding and had no further questions or concerns. ? Orders: norethindrone-ethinyl estradiol(Microgestin 1/20 oral tablet), 1 tab(s), Oral, Daily, # 84 tab(s), 3 total refill(s), Maintenance, 1 tab(s) Oral Daily, Pharmacy: [facility] [Federal Rx: #84 last filled 09/20/23] Disposition:? 1. Is member deployable? Y? 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 3. Does member meet retention standards? Y? 4. Can member complete FA? Y? .............................. .............................. ............ DESTINY G. NURSE, , [facility]? [address]? [place], [address] ? .............................. .............................. ............. ? Extracted from:Title: Hair loss concerns. Author: JEAN DASILVA NP Date: 04/02/23 1.?Loss of scalp hair pat reports having what she feels is excessive. she does have pics with some hair after showering with some hair noted in brush and hand. - they moved here in May 27, and this started in Sep, but has worsened over past several months. - washes hair 2-3x/ week, not daily, does take a biotin supplement as well as Vits D, C and multi.? - discussed possible causes including stress, post .? she has not had a and does not feel she is stressed in any way. - she has had tsh completed in Jun 27, we will repeat to compare, her mother has been treated for Hasimotos thyroid issues. - she feels the?areas at zoroastrianism are thinning and more sparse, but no specific areas of baldness.? - new hair growth noted along temples/ area of concern. - recommended to continue on her vits and supplements. - most likely is normal degree of shedding, but pat was encouraged to continue to monitor. ? Ordered: T3 Total Level TSH+Free T4 [id number] ? Extracted from:Title: generalized body aches, post viral syndrome Author: JEAN DASILVA NP Date: 12/22/22 1.?Generalized body aches Pat reports feeling crappy all week, started with headache and nausea last Sunday.? On Sunday had developed fever of 102 with body aches. last fever was on Sun, 2 days ago.? has been taking tylenol, ?all symptoms have resolved except the body aches. tylenol is not helping at all for that. - PE is unremarkable, pat is pleasant today - she did home test for covid that was Negative, denies loss of taste or smell, but appetite is nonexistent. - only symptom really left is body aches, but is very significant to her doing anything.? - suggested it is still most likely something viral, antibiotics not indicated at this time.? - instructed to push fluids and hydrate well. - will have her do 3 day regimen of oral steroid to start tomorrow.? on 4th day can start the motrin bid w/ food for another 4-5 days.? Advised of possible side effects of steroid treatment.? will plan to start in am, taking 1 motrin with dinner tonight.? - Encouraged hydration, hygiene, and hand washing - Pt to RTC if symptoms persist for re-evaluation of symptoms, at that time will consider alternative treatment. - Pt to seek medical attention if Fever, SOB, difficulty breathing, difficulty swallowing occur. ? Orders: ibuprofen(ibuprofen 600 mg oral tablet), 1 tab(s), Oral, BID, # 40 tab(s), 0 total refill(s), Maintenance, 1 tab(s) Oral BID, Pharmacy: [email or web address] [Not filled] predniSONE(predniSONE 50 mg oral tablet), 1 tab(s), Oral, Daily, X 3 days, # 3 tab(s), 0 total refill(s), Acute, 1 tab(s) Oral Daily,x3 days, Pharmacy: [email or web address] [Not filled] Extracted from:Title: establish care, labs requested, med renewal Author: JEAN DASILVA NP Date: 06/27/22 1.?Well female adult pat is here to establish care, she is wanting some base line labs drawn to see where she is. - her mother and sister both have thyroid problems she is concerned. - she has been anemic before and has since stopped eating red meat, so would like to check that also. - overall healthy young lady with no concerning findings identified on physical exam. ? ? Ordered: CBC w/ Diff Comprehensive Metabolic Panel Iron and TIBC [id number] TSH w/Reflex Testing EPI P7812 Vit B12 and Folate [id number] ? 2.?Contraception pat reports last pap was December 2020, she denies any problems with the BC. - periods are regular, coming at the same times.? - Denies having any pregnancies. - LMP was 23 Jun 2022.? - pat denies vaping or smoking. ? ? ? Ordered: norethindrone-ethinyl estradiol(Microgestin 1/20 oral tablet), 1 tab(s), Oral, Daily, # 84 tab(s), 3 total refill(s), Maintenance, 1 tab(s) Oral Daily, Pharmacy: [email or web address] [Not filled] ? Extracted from:Title: [facility] Office Visit Note Author: ESHA SANDOVAL, OD Date: 04/27/21 1.?Vitreous floaters of left eye ?Round white focal area in superonasal periphery suggestive of vitreal retinal tuft vs operculated hole vs chorioretinal scar. Unclear if this lesion is causing paracentral fixed spot in patients vision. It was noted 1 y/a when pt was asymptomatic. Referring to [address] Lei for evaluation today. Ordered: Determination Refractive State 35976 [facility] Xm&Eval Comprhnsv Estab Pt 1/> 43896 ? 2.?Bilateral myopia of eyes Stable OU.?Gave spec Rx Ordered: Determination Refractive State 24455 Ophthalmological Medical Xm&Eval Comprhnsv Estab Pt 1/> 04866 ? 3.?Bilateral regular astigmatism Stable OU,??Gave new spec Rx Ordered: Determination Refractive State 62667 Ophthalmological Medical Xm&Eval Comprhnsv Estab Pt 1/> 90628 ? Extracted from:Title: Office Clinic Note - Well Woman Exam, Vaginal Pain Author: BEHZAD MACEDO PA-C Date: 12/20/20 1.?Well female adult Per ACOG recommendations, pap in 3 years if today's result is negative.? Stop at age 64 years.? Recommend annual pelvic and clinical breast exam, and malini every 1 to 2 years beginning age 40 per recommendations; sooner prn concerns. Ordered: Office Visit Level 3 Est 49774 ? 2.?Vaginal pain ?Pt presents with c/o o vaginal pain with intercourse.?Stable in clinic.?PE unremarkable. No CMT. Vaginosis swab neg. GC/Chlamydia still pending. Pain may also be 2/2 to rough intercourse. Advised pt to ensure proper lubrication during sex. Also suggested avoidance of the positions that are less painful and?rough sex.?i will follow-up with her pending results.?She will f/u sooner for any new/worsening symptoms. Return/ER precautions given. All questions answered. Pt concurred.? Ordered: Chlamydia/GC NAAT Panel EPI P5897 Office Visit Level 3 Est 63290 ? 3.?Menstrual cramps Pt presents with c/o of menstrual cramping, no heavy bleeding but is passing small clots. Currently on BC.?PE unremarkable. Labs still pending. There are no immediate?concerns for uterine masses at this time or anemia. Advised taking Motrin 1-2 days prior to onset of cycle and con't through first few days of cycle.?She?will f/u prn if no improvement or for any new/worsening symptoms. Return/ER precautions given. All questions answered. Pt concurred.? Ordered: Office Visit Level 3 Est 22102 ? 4.?Papanicolaou smear taken Ordered: Cytologic JOB CHECKER [facility] 2486 Office Visit Level 3 Est 66998 ? 5.?Repeated prescription ?BC refilled as previously prescribed. Ordered: Microgestin /20 oral tablet, 1 tab(s), Oral, Daily, # 84 tab(s), 3 total refill(s), Maintenance, 1 tab(s) Oral Daily, Pharmacy: [facility] [Federal Rx: #84 last filled 12/20/20] Office Visit Level 3 Est 83449 ? Extracted from:Title: Headache F/U - Office Clinic Note Author: BEHZAD MACEDO Date: 07/23/20 1.?Headache ?20 y/o female presents for HAYES f/u. Currently? Asymptomatic with no red flags. No immediate concerns at this time. Encouraged pt to continue with previous treatment/management. She will f/u prn for any new/worsening symptoms. Return/ER Precautions given.?All questions answered. Pt concurred. ? Previous 09 Jul 2020: 1. Headache History and physical exam most consistent with: secondary headache with some potential migrainous features, though at this time I would not classify these headaches as migraines. Food or lack of food may be a possible trigger. Pt stood up in exam room to perform tandem gait and was lightheaded for 1-2 seconds upon standing - she has not yet had anything to eat or drink today and I think this was likely orthostatic in nature secondary to mild dehydration.? ? Benign clinical/neuro exam today - no localizing symptoms or red flags.? Encouraged continued HAYES diary to track possible triggers? ? bring to f/u appointment - pt to note particular attention to food, timing of eating and fluid consumption. Reviewed general recommendations: 1. Encouraged plenty of sleep, regular scheduled meals. 2. Push fluids. 3. Early use of OTC meds such as Tylenol/NSAIDS - may take 2 tabs ibuprofen 200mg for moderate/severe headache 4. Follow-up in 2 weeks for HAYES diary review. Pt will be leaving [facility] Jul and flying to [place] for the holidays. 5. Daily neck stretches - sports med handout provided 6. Wear glasses when watching TV ? May consider daily prophylactic if frequent HAYES s . Seek ER care for severe HAYES, vision changes, neuro deficits, fever, neck stiffness, trouble moving or speaking, any other severe/worsening sx. Will consider referral to Neurology if symptoms persist despite medication management. ? Ordered: Office Visit Level 3 Est 88022 ? Extracted from:Title: Ambulatory Patient Education Author: BEHZAD MACEDO Date: 07/23/20 Patient Education Materials Follows: Extracted from:Title: Office Clinic Note Author: JEMIMA PADILLA NP Date: 07/09/20 1.?Headache History and physical exam most consistent with: secondary headache with some potential migrainous features, though at this time I would not classify these headaches as migraines.?Food or lack of food may be a possible trigger. Pt stood up?in exam?room to?perform tandem gait and was?lightheaded for 1-2 seconds?upon standing - she has not yet had anything to eat or drink today and I think this was likely orthostatic in nature secondary to mild dehydration.? ? Benign?clinical/neuro exam?today - no localizing symptoms or red flags.? Encouraged continued HAYES diary?to track possible triggers? ? bring to f/u appointment - pt to note particular attention to food, timing of eating and fluid consumption. Reviewed general recommendations: 1. ?Encouraged plenty of sleep, regular scheduled meals. 2. ?Push fluids. 3. ?Early use of?OTC?meds?such as Tylenol/NSAIDS ?- may take 2 tabs ibuprofen 200mg for moderate/severe headache ? 4. ?Follow-up in?2?weeks for HAYES diary review. Pt will be leaving [facility] Jul and flying to [place] for the holidays. 5.? Daily neck stretches - sports med handout provided 6.? Wear glasses when watching TV ? May consider daily prophylactic?if frequent HAYES s . Seek ER care for severe HAYES, vision changes, neuro deficits, fever, neck stiffness, trouble moving or speaking, any other severe/worsening sx. ??Will consider referral to Neurology if symptoms persist despite medication management. ? 10/01/2024 0094C[facility] Assessment and Plan Extracted from:Title : JOB CHECKER: PAP, BC refill Author: DESTINY BARRIOS Date: 09/20/23 Encounter for screening for infections with a predominantly sexual mode of transmission -Screening per CDC recommendations ? -Pt aware she will be contacted if results return positive from labs collected at visit today, otherwise pt informed labs visible on Revision3 online. -Verbalized understanding.? ? Ordered: Chlamydia/GC NAAT Panel ? Encounter for screening for malignant neoplasm of cervix Pap HX: December 2020: NILM/-- ? -She was instructed?that if her pap smear results are normal she will receive a message in Revision3, ? encouraged to register on the platform if she has not already done so. -If her results return abnormal she will be contacted by PHONE with a plan of care -Informed that at a minimum she will need a WWE in 1-3 years to screen for ovarian and breast cancers. ? ? -Reviewed findings from today's exam and discussed presumptive plan considering her history with NORMAL pap smears, her next PAP will be due in?3 years,? ? ?Feb?2026.? ? She verbalized understanding of information/results and had no further questions or concerns. ? Ordered: AP Cytology JOB CHECKER ? Encounter for surveillance of contraceptive pills -Pt reports satisfaction with OCP regimen and desires a refill. ? -Reviewed counseling on the risks and benefits of OCPs.? -Pt?aware of?the potential side effects -She was instructed to return to the clinic if experiences side effects.?? -Aware that she should use condoms regardless if not in a committed relationship as OCPs do not protect against STIs. ? -Patient verbalized understanding and had no further questions or concerns. ? Orders: norethindrone-ethinyl estradiol(Microgestin / oral tablet), 1 tab(s), Oral, Daily, # 84 tab(s), 3 total refill(s), Maintenance, 1 tab(s) Oral Daily, Pharmacy: [facility] [Federal Rx: #84 last filled 09/20/23] Disposition:? 1. Is member deployable? Y? 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 3. Does member meet retention standards? Y? 4. Can member complete FA? Y? .............................. .............................. ............ DESTINY BARRIOS, , [facility]? [address]? [place], [address] ? .............................. .............................. ............. ? Extracted from:Title: Hair loss concerns. Author: JEAN DASILVA ELECTRICAL LINE SPLICER Date: 04/02/23 1.?Loss of scalp hair pat reports having what she feels is excessive. she does have pics with some hair after showering with some hair noted in brush and hand. - they moved here in May 27, and this started in Sep, but has worsened over past several months. - washes hair 2-3x/ week, not daily, does take a biotin supplement as well as Vits D, C and multi.? - discussed possible causes including stress, post .? she has not had a and does not feel she is stressed in any way. - she has had tsh completed in Jun 27, we will repeat to compare, her mother has been treated for Hasimotos thyroid issues. - she feels the?areas at zoroastrianism are thinning and more sparse, but no specific areas of baldness.? - new hair growth noted along temples/ area of concern. - recommended to continue on her vits and supplements. - most likely is normal degree of shedding, but pat was encouraged to continue to monitor. ? Ordered: T3 Total Level TSH+Free T4 [id number] ? Extracted from:Title: generalized body aches, post viral syndrome Author: JEAN DASILVA ELECTRICAL LINE SPLICER Date: 12/22/22 1.?Generalized body aches Pat reports feeling crappy all week, started with headache and nausea last Sunday.? On Sunday had developed fever of 102 with body aches. last fever was on Sun, 2 days ago.? has been taking tylenol, ?all symptoms have resolved except the body aches. tylenol is not helping at all for that. - PE is unremarkable, pat is pleasant today - she did home test for covid that was Negative, denies loss of taste or smell, but appetite is nonexistent. - only symptom really left is body aches, but is very significant to her doing anything.? - suggested it is still most likely something viral, antibiotics not indicated at this time.? - instructed to push fluids and hydrate well. - will have her do 3 day regimen of oral steroid to start tomorrow.? on 4th day can start the motrin bid w/ food for another 4-5 days.? Advised of possible side effects of steroid treatment.? will plan to start in am, taking 1 motrin with dinner tonight.? - Encouraged hydration, hygiene, and hand washing - Pt to RTC if symptoms persist for re-evaluation of symptoms, at that time will consider alternative treatment. - Pt to seek medical attention if Fever, SOB, difficulty breathing, difficulty swallowing occur. ? Orders: ibuprofen(ibuprofen 600 mg oral tablet), 1 tab(s), Oral, BID, # 40 tab(s), 0 total refill(s), Maintenance, 1 tab(s) Oral BID, Pharmacy: [facility] [Not filled] predniSONE(predniSONE 50 mg oral tablet), 1 tab(s), Oral, Daily, X 3 days, # 3 tab(s), 0 total refill(s), Acute, 1 tab(s) Oral Daily,x3 days, Pharmacy: [email or web address] [Not filled] Extracted from:Title: establish care, labs requested, med renewal Author: JEAN DASILVA, ELECTRICAL LINE SPLICER Date: 06/27/22 1.?Well female adult pat is here to establish care, she is wanting some base line labs drawn to see where she is. - her mother and sister both have thyroid problems she is concerned. - she has been anemic before and has since stopped eating red meat, so would like to check that also. - overall healthy young lady with no concerning findings identified on physical exam. ? ? Ordered: CBC w/ Diff Comprehensive Metabolic Panel Iron and TIBC [id number] TSH w/Reflex Testing EPI P7812 Vit B12 and Folate [id number] ? 2.?Contraception pat reports last pap was December 2020, she denies any problems with the BC. - periods are regular, coming at the same times.? - Denies having any pregnancies. - LMP was 23 Jun 2022.? - pat denies vaping or smoking. ? ? ? Ordered: norethindrone-ethinyl estradiol(Microgestin 1/20 oral tablet), 1 tab(s), Oral, Daily, # 84 tab(s), 3 total refill(s), Maintenance, 1 tab(s) Oral Daily, Pharmacy: [email or web address] [Not filled] ? Extracted from:Title: Eye Care APSO Office Visit Note Author: ESHA SANDOVAL, OD Date: 04/27/21 1.?Vitreous floaters of left eye ?Round white focal area in superonasal periphery suggestive of vitreal retinal tuft vs operculated hole vs chorioretinal scar. Unclear if this lesion is causing paracentral fixed spot in patients vision. It was noted 1 y/a when pt was asymptomatic. Referring to [address] Lei for evaluation today. Ordered: Determination Refractive State 54337 Ophthalmological Medical Xm&Eval Comprhnsv Estab Pt 1/> 97354 ? 2.?Bilateral myopia of eyes Stable OU.?Gave spec Rx Ordered: Determination Refractive State 57302 Ophthalmological Medical Xm&Eval Comprhnsv Estab Pt 1/> 54453 ? 3.?Bilateral regular astigmatism Stable OU,??Gave new spec Rx Ordered: Determination Refractive State 52254 Ophthalmological Medical Xm&Eval Comprhnsv Estab Pt 1/> 87807 ? Extracted from:Title: Office Clinic Note - Well Woman Exam, Vaginal Pain Author: BEHZAD MACEDO PA-C Date: 12/20/20 1.?Well female adult Per ACOG recommendations, pap in 3 years if today's result is negative.? Stop at age 64 years.? Recommend annual pelvic and clinical breast exam, and malini every 1 to 2 years beginning age 40 per recommendations; sooner prn concerns. Ordered: Office Visit Level 3 Est 68685 ? 2.?Vaginal pain ?Pt presents with c/o o vaginal pain with intercourse.?Stable in clinic.?PE unremarkable. No CMT. Vaginosis swab neg. GC/Chlamydia still pending. Pain may also be 2/2 to rough intercourse. Advised pt to ensure proper lubrication during sex. Also suggested avoidance of the positions that are less painful and?rough sex.?i will follow-up with her pending results.?She will f/u sooner for any new/worsening symptoms. Return/ER precautions given. All questions answered. Pt concurred.? Ordered: Chlamydia/GC NAAT Panel EPI P5897 Office Visit Level 3 Est 33135 ? 3.?Menstrual cramps Pt presents with c/o of menstrual cramping, no heavy bleeding but is passing small clots. Currently on BC.?PE unremarkable. Labs still pending. There are no immediate?concerns for uterine masses at this time or anemia. Advised taking Motrin 1-2 days prior to onset of cycle and con't through first few days of cycle.?She?will f/u prn if no improvement or for any new/worsening symptoms. Return/ER precautions given. All questions answered. Pt concurred.? Ordered: Office Visit Level 3 Est 65307 ? 4.?Papanicolaou smear taken Ordered: Cytologic JOB CHECKER [facility] 3499 Office Visit Level 3 Est 34066 ? 5.?Repeated prescription ?BC refilled as previously prescribed. Ordered: Microgestin 1/20 oral tablet, 1 tab(s), Oral, Daily, # 84 tab(s), 3 total refill(s), Maintenance, 1 tab(s) Oral Daily, Pharmacy: [facility] [Federal Rx: #84 last filled 12/20/20] Office Visit Level 3 Est 53160 ? Extracted from:Title: Headache F/U - Office Clinic Note Author: BEHZAD MACEDO Date: 07/23/20 1.?Headache ?20 y/o female presents for HAYES f/u. Currently? Asymptomatic with no red flags. No immediate concerns at this time. Encouraged pt to continue with previous treatment/management. She will f/u prn for any new/worsening symptoms. Return/ER Precautions given.?All questions answered. Pt concurred. ? Previous 09 Jul 2020: 1. Headache History and physical exam most consistent with: secondary headache with some potential migrainous features, though at this time I would not classify these headaches as migraines. Food or lack of food may be a possible trigger. Pt stood up in exam room to perform tandem gait and was lightheaded for 1-2 seconds upon standing - she has not yet had anything to eat or drink today and I think this was likely orthostatic in nature secondary to mild dehydration.? ? Benign clinical/neuro exam today - no localizing symptoms or red flags.? Encouraged continued HAYES diary to track possible triggers? ? bring to f/u appointment - pt to note particular attention to food, timing of eating and fluid consumption. Reviewed general recommendations: 1. Encouraged plenty of sleep, regular scheduled meals. 2. Push fluids. 3. Early use of OTC meds such as Tylenol/NSAIDS - may take 2 tabs ibuprofen 200mg for moderate/severe headache 4. Follow-up in 2 weeks for HAYES diary review. Pt will be leaving [facility] Jul and flying to [place] for the holidays. 5. Daily neck stretches - sports med handout provided 6. Wear glasses when watching TV ? May consider daily prophylactic if frequent HAYES s . Seek ER care for severe HAYES, vision changes, neuro deficits, fever, neck stiffness, trouble moving or speaking, any other severe/worsening sx. Will consider referral to Neurology if symptoms persist despite medication management. ? Ordered: Office Visit Level 3 Est 64841 ? Extracted from:Title: Ambulatory Patient Education Author: BEHZAD MACEDO Date: 07/23/20 Patient Education Materials Follows: Extracted from:Title: Office Clinic Note Author: JEMIMA PADILLA NP Date: 07/09/20 1.?Headache History and physical exam most consistent with: secondary headache with some potential migrainous features, though at this time I would not classify these headaches as migraines.?Food or lack of food may be a possible trigger. Pt stood up?in exam?room to?perform tandem gait and was?lightheaded for 1-2 seconds?upon standing - she has not yet had anything to eat or drink today and I think this was likely orthostatic in nature secondary to mild dehydration.? ? Benign?clinical/neuro exam?today - no localizing symptoms or red flags.? Encouraged continued HAYES diary?to track possible triggers? ? bring to f/u appointment - pt to note particular attention to food, timing of eating and fluid consumption. Reviewed general recommendations: 1. ?Encouraged plenty of sleep, regular scheduled meals. 2. ?Push fluids. 3. ?Early use of?OTC?meds?such as Tylenol/NSAIDS ?- may take 2 tabs ibuprofen 200mg for moderate/severe headache ? 4. ?Follow-up in?2?weeks for HAYES diary review. Pt will be leaving [facility] Jul and flying to [place] for the holidays. 5.? Daily neck stretches - sports med handout provided 6.? Wear glasses when watching TV ? May consider daily prophylactic?if frequent HAYES s . Seek ER care for severe HAYES, vision changes, neuro deficits, fever, neck stiffness, trouble moving or speaking, any other severe/worsening sx. ??Will consider referral to Neurology if symptoms persist despite medication management. ? 10/01/2024 0006[facility] Functional Status Combined list of recent functional and cognitive assessments recorded at [employer] ([facility]VA Functional [place] Measurement (FIM) Scale: 1 = Total Assistance (Subject = 0% +), 2 = Maximal Assistance (Subject = 25% +), 3 = Moderate Assistance (Subject = 50% +), 4 = Minimal Assistance (Subject = 75% +), 5 = Supervision, 6 = Modified [place] (Device), 7 = Complete [place] (Timely, Safely). Assessment Date/Time Source Assessment Type Assessment Skill Assessment Score Assessment Details No data available for this section
== END 2024-10-01 11:10 | disposition home or self-care (01) ==
PROVIDERS: Visit Provider Internal Medicine
DX: Z00.01 Encounter for general adult medical examination with abnormal findings (principal); Z78.9 Other specified health status; Z12.4 Encounter for screening for malignant neoplasm of cervix; Z71.89 Other specified counseling

== ENCOUNTER 2024-10-01 10:05 | Outpatient (REF) | payer OTHER, SELFPAY ==
--- OUTSIDE RECORDS SUMMARY | 2024-10-01 13:24 | XMS_ITS | Continuity of Care Document ---
Author Name [facility] Organization [facility] Care Team Providers Care Director Information Name Role Phone [facility] Unavailable Unavailable Problems Combined list of problems from [facility] and [facility] facilities. It does not include entries that were removed or entered in error. Problem Status Onset Date Problem Type Date of Resolution Comments Source Myopia, bilateral Active Condition [facility] Regular astigmatism, bilateral Active Condition DoD Pain in right knee Active Condition [facility] Bilateral myopia of eyes Active Condition 0006C-Joint [facility] Bilateral regular astigmatism Active Condition 0006C-[facility] Contraception Active Condition [facility] Generalized body aches Active Condition [facility] Loss of scalp hair Active Condition [facility] Morbid obesity Active Condition Unknown Organization Vitreous floaters of left eye Active Condition 0006C-[facility] Well female adult Active Condition 0094 C-[facility] Medications Combined list of outpatient medications from [facility] and [facility] facilities.Medications provided include 1) outpatient medications from the last 15 months, and 2) patient-reported medications. Medication Details Route Status Patient Instructions Prescription Expires Prescription Number Last Dispense Date Ordering Provider Order Date Order Qty Source AMOX TR-POTASSIU M CLAVULANATE (AMOXICILLI N/POTASSIUM CLAV), 875-125 MG, TABLET, ORAL, [facility], 20 ea. BOTTLE Active [id number] 4 2023 14 Pharmac y Data Transac tion Service Facilit y ibuprofen 0 total refill(s ), Audrey acosta Discont inued 12/22/20222022 0006C[facility] 600 mg oral tablet 1 tab(s), Oral, BID, # 40 tab(s), 0 total refill(s ), Maintena karla, Pharmacy : [facility] Oral (given by mouth) Ordered 3 2022 40.0 [facility]94C[facility] Microgestin 1/20 oral tablet 1 tab(s), Oral, Daily, # 84 tab(s), 3 total refill(s ), Maintena cae, Pharmacy : [facility] Oral (given by mouth) Discont inued 06/27/2022 2 2021 84.0 0006C-[facility]/20 oral tablet 1 tab(s), Oral, Daily, # 84 tab(s), 3 total refill(s ), Maintena cae, Pharmacy : [facility] Oral (given by mouth) Ordered 3 2021 84.0 [facility] Microgestin 1/20 oral tablet tab(s), Oral, Daily, 0 total refill(s ), Maintena nce Oral (given by mouth) Discont inued 12/20/20202020 0006C-[facility] Micro[facility]in 1/20 oral tablet 1 tab(s), Oral, Daily, # 84 tab(s), 3 total refill(s ), [facility], Pharmacy : [facility] Oral (given by mouth) Ordered 09/21/2024 4 2023 84.0 [facility] Microgestin 1/20 oral tablet 1 tab(s), Oral, Daily, # 84 tab(s), 3 total refill(s ), [facility], [facility] Oral (given by mouth) Discont inued 03/17/2022 2 2021 84.0 0006C-[facility] predniSONE 50 mg oral tablet 1 tab(s), Oral, Daily, X 3 days, # 3 tab(s), 0 total refill(s ), Acute, Pharmacy : [facility] Oral (given by mouth) Complet [...] Site Reaction Lot Number CVX Code Drug Grinder Machine Setter Status Comments Source COVID Vaccine Pfizer 2020 FLORYRYSHAILESHINNE Y Shoul elsi, left (delt oid) [id number] PFIZER complet ed COVID Vaccine Pfizer 01/14/21 Given 0006C-J oint Base [facility] COVID Vaccine Pfizer 2020 VICAKINPMCGEO RGE Shoul elsi, right (delt oid) [id number] PFIZER complet ed COVID Vaccine Pfizer 12/24/20 Given 0006C-J [employer] [facility] Results Combined list of [...] 0.5% for GC. At this prevalence, the [employer] r estimates 5% the overall sensitivity and specificity for CT to be 94.1% and 99.6% respectivel y. For GC the sensitivity and specificity rates are 97.1% and he 99.8%. The Positive Predictive Value and the Negative Predictive Value calculated by the [employer] r using the above clinical trial data [...] for proper notificatio n. 5600A-[facility] EP[facility] EZMoveula r Infectio us Disease Chlamydia NAAT Not Detected (09/20/23 11:07 AM) 09/20 N 56[facility] EP[facility] AP Specimen s AP Cyto FORM DESIGNER Patient: Crow Foley Specimen #: [id number] Patholog ist: Accessio n: 4 [facility] DEPARTME NT OF PATHOLOG Y [address] [place] [address] Cytology Gynecolo gic Report Patient: Crow Foley Specimen #: [id number] [facility] ID:: [id number] Encounte r #: [id number] Taken: 4 11:02 /Age: 5 2000 (Age: [...] Out Specimen # Interpre tation 12/28/19 21 [id number] Negative for Intraepi thlial Lesion or Malignan cy CPT Codes: A; 62893 The Pap test is a screenin g test for precurso rs of squamous cell carcinom a with an irreduci ble false negative rate of around 5%. It is not designed to detect glandula r lesions. A negative test does not ensure that no disease is present. 09/20-[facility] Chemistr y T4 Free Direct.LC 1.09 ng/dL 04/02 Result Comment: Performed At: [facility] [address] [place], [place] [id number] Dony Gould MD Ph:[phone] 00 [facility] Chemistr y TSH LC 2.170 uIU/mL 04/02[facility] Chemistr y T3 Total 1.64 ng/mL 0.80 - 2.00 04/02 N Interpretiv e Data: METHODOLOGY : Testing performed by electrochem ilFliptun t immunoassay (ECLIA). 5600A-[place] [facility] EPILAB Hematolo gy WBC 5.2 10^3/uL 4.5 - 11.0103 06/27 N [facility] Hematolo gy RBC 4.74 10^6/uL 3.97 - 5.94760 06/27 N [facility] Hematolo gy MCHC 34.0 g/dL 32.0 - 36.0 06/27 N [facility] Hematolo gy MPV 8.5 fL 6.8 - 10.2 06/27 N [facility] Hematolo gy RDW 12.7 % 12.0 - 14.6 06/27 N [facility] Hematolo gy Platelets 226 10^3/uL 150 - 722494 06/27 N [facility] Hematolo gy MCV 86.6 fL 80.0 - 100.0 06/27 N [facility] Hematolo gy MCH 29.4 pg 28.0 - 34.0 06/27 N [facility] Hematolo gy Hemoglobin 13.9 g/dL 12.0 - 16.0 06/[address] Hematolo gy Hematocrit 41.1 % 36.0 - 46.0 06/27 N [facility] Chemistr y TIBC LC 410 ug/dL 06/[address] Chemistr y Iron Sat LC 25 % 06/27 Result Comment: Performed At: 01 [facility] [address] [place], [place] [id number] Doyn Gould MD Ph:[phone] [facility] Chemistr y Iron Lvl.LC 102 ug/dL 06/[address] Chemistr y UIBC LC 308 ug/dL 06/[address] Hematolo gy Monocyte % Auto 4.3 % 3.5 - 11.4 06/[address] Hematolo gy Eosinophil % Auto 1.8 % 0.0 - 5.0 06/27 [facility] Hematolo gy Lymphocyte % Auto 33.1 % 15.8 - 44.5 06/27 [facility] Hematolo gy Neutrophil % Auto 60.2 % 40.0 - 80.0 06/27 [facility] Hematolo gy Jessamine Absolute 0.2 0.1 - 0.8 06/27 [facility] Hematolo gy Eos Absolute 0.1 10^3/uL 0.0 - 0.4103 06/27 [facility] Hematolo gy Neutro Absolute 3.2 10^3/uL 1.8 - 7.0103 06/27 [facility] Hematolo gy Lymph Absolute 1.7 10^3/uL 0.8 - 3.2103 06/27 [facility] Hematolo gy Basophil % Auto 0.6 % 0.0 - 2.7 06/27 [facility] Hematolo gy Baso Absolute 0.0 x10^3/mc L 0.0 - 0.2103 06/27 [facility] Chemistr y Thyrotropi n.EPI 1.250 uIU/mL 06/27 Result Comment: INTERPRETAT ION(S): Recommend: TPO/Thyrope roxidase Antibody when TSH result is > 4.2 uIU/mL Performed by: Epidmiology Laboratory Service [facility] [address] [place] [phone] [facility] Chemistr y Vit B12 Lvl.LC 321 pg/mL 06/27 [facility] Chemistr y Folate.LC 10.5 ng/mL 06/27 Result Comment: A serum folate concentrati on of less than 3.1 ng/mL is considered to represent clinical deficiency. Performed At: [facility] [address] [place], [place] [id number] Dony Gould MD Ph:[phone] [facility] Chemistr y Potassium Lvl 4.4 mmol/L 3.5 - 5.1 06/[address] Group Chemistr y Alk Phos 57.0 U/L 38.0 - 126.0 06/[address] Chemistr y Albumin 4.3 g/dL 3.5 - 5.0 06/[address] Chemistr y Chloride 102 mmol/L 98 - 107 06/[address] Chemistr y CO2 30.0 mmol/L 22.0 - 30.0 06/[address] Chemistr y BUN 11.0 mg/dL 7.0 - 17.0 06/[address] Chemistr y Bilirubin Total 0.40 mg/dL 0.20 - 1.30 06/[address] Chemistr y Sodium 139 mmol/L 137 - 145 06/[address] Chemistr y Calcium 10.5 mg/dL 8.4 - 10.2 06/[address] Chemistr y ALT 12.0 U/L 0.0 - 35.0 06/[address] Chemistr y Glucose Lvl 91 mg/dL 74 - 106 06/[address] [place] [address] Chemistr y AST 23 U/L 14 - 36 06/[address] [place] [address] Chemistr y Protein Total 8.2 g/dL 6.0 - 8.3 06/[address] Chemistr y Globulin 3.9 2.4 - 3.5 06/[address] Chemistr y A/G Ratio 1.1 06/[address] Chemistr y AGAP 11.4 10.0 - 20.0 06/[address] Chemistr y Creatinine Level 0.80 mg/dL 0.52 - 1.04 06/[address] Chemistr y eGFR CKD EPI 106 [...] 0094A-[facility] AP Specimen s Cytologic FORM DESIGNER.[facility] Col: [id number] 1102 THIN PREP-CE( LBC CERVICAL ) Hcp: Mel MACEDO Loc: REMOTE L Ranjanai eugenia Lab: [place] [address]781 BAG [address] SL Accessio n #: [id number] CYTO FORM DESIGNER C:[id number] CoPath Report Patient: CROW FOLEY Specimen #: [id number] Patholog ist: Accessio n: 1 [facility] DEPARTME NT OF PATHOLOG Y [address] [place] [address] Cytology Gynecolo gic Report Patient: CROW FOLEY Specimen #: [id number] [facility] ID:: [id number] /Age: 6 2000 (Age: 20) Reported [...] that no disease is present. CPT Codes: 83835-IE ;08561 12/20 0006A-[facility] Molecula r Infectio us Disease GC [...] 0.5% for GC. At this prevalence, the [employer] r estimates the overall sensitivity and specificity for CT to be 94.1% and 99.6% respectivel y. For GC the sensitivity and specificity rates are 97.1% and 99.8%. The Positive Predictive Value and the Negative Predictive Value calculated by the [employer] r using the above clinical trial data [...] n. Performed by: Epidemiolog y Laboratory Service [facility] [address]. [address] [address] [place] [address] 0006A-[facility] Disease Chlamydia NAAT.EPI NEGATIVE 12/20 Result Comment: INTERPRETAT ION(S): 0006A-[employer] [facility] us Disease Lima Species Negative 7 (12/20/20 [...] vaginal discharge characteris tics. 0006A-[employer] [facility] Disease [place] a vaginalis Negative 8 (12/20/20 [...] test for therapeutic success or failure. The [employer] VPIII Microbial Identificat ion Test is for [...] and vaginal discharge characteris tics. 0006A-Leydi nt [facility] Infectio us Disease Trichomona s vaginalis Negative [...] test for therapeutic success or failure. The [employer] VPIII Microbial Identificat ion Test is for [...] vaginal discharge characteris tics. 0006A-[employer] [facility] Vital Signs Combined list of inpatient and outpatient Vital Signs from Department of Defense and Veterans Affairs, ranging from 12 months to all on record, depending upon the facility. Vital Sign Value Date Comments Source Blood Pressure Manual Automatic 04/02/2023 12:29: [address] [place] [address] Temperature Tympanic 37 Ashanti 04/02/2023 12:29:[address] [place] [address] BP Site Left arm 04/02/2023 12:29:[address] [place] [address] Respiratory Rate 16 br/min 04/02/2023 12:29:[address] [place] [address] Mean Arterial Pressure, Calc 100 mm[Hg] 04/02/2023 12:29:[address] [place] [address] Peripheral Pulse Rate 79 bpm 04/02/2023 12:29: [address] [place] [address] Group Systolic Blood Pressure 131 mm[Hg] 04/02/20 23 12:29:[address] [place] [address] Group Diastolic Blood Pressure 84 mm[Hg] 023 12:29:[address] [place] [address] Group Systolic Blood Pressure 113 mm[Hg] 06/27/20 [...] 0094C[facility] Temperature Temporal Artery 36.7 Ashanti 12/22/2022 19:45:00 [facility] Blood Pressure [...] Arterial Pressure, Calc 93 mm[Hg] 09/20/2023 22:10:00 [facility] Respiratory Rate 14 br/min 09/20/2023 22:10:00 [facility] Temperature Oral 36.8 Ashanti 09/20/2023 22:10:00 [facility] Temperature Oral 36.6 [place]anti 12/20/2020 18:23:[address] [place] [address] Blood Pressure Manual Automatic 12/20/2020 18:23:[address] [place] [address] BP Site Right arm 12/20/2020 18:23:[address] [place] [address] Systolic Blood Pressure 130 mm[Hg] 12/21/19 18:23:[address] [place] [address] Diastolic Blood Pressure 86 mm[Hg] 021 18:23:[address] [place] [address] Respiratory Rate 20 br/min 12/20/2020 18:23:[address] [place] [address] Peripheral Pulse Rate 86 bpm 12/20/2020 18:23:[address] [place] [address] Mean Arterial Pressure, Calc 101 mm[Hg] 12/20/2020 18:23:[address] [place] [address] Respiratory Rate 14 br/min 07/09/2020 23:49:[address] [place] [address] Peripheral Pulse Rate 87 bpm 07/09/2020 23:49:[address] [place] [address] Mean Arterial Pressure, Calc 90 mm[Hg] 07/09/2020 23:49:[address] [place] [address] BP Site Right arm 07/09/2020 23:49:[address] [place] [address] Systolic Blood Pressure 112 mm[Hg] 07/09/20 20 23:49:[address] [place] [address] Diastolic Blood Pressure 79 mm[Hg] 020 23:49:[address] [place] [address] Blood Pressure Manual Automatic 07/09/2020 23:49:[address] [place] [address] Encounters Combined list of: 1) Encounters from Department of Veterans Affairs facilities going backup to the last 18 months, not all VA inpatient encounters are included; 2) Encounters from the Department of Defense facilities going backup to 280 months. Location Location Details Encounter Type Encounter Number Reason For Visit Attending Provider ADM Date DC Date Status Disposition Source [facility]) OUTPATIENT [id number] EFMP klarissa BATESKHADIJAH CHOWDHURY Vidya 07/21 Released w/o Limitations [facility]) [facility]) OUTPATIENT [id number] !EFMP [place] MAIN 08/07 Released w/o Limitations [facility]) [facility] ) OUTPATIENT [id number] right knee pain JEMIMA PADILLA 10/08 Released w/o Limitations [facility] ) TELE CONSULT [id number] Notes Entered by: BASILIO SELF ACE 13 Oct 2019 1318 ------- ------- ------- ------- -- JULITO BRAR 10/12 Other Not Elsewhere Classified [facility] ) TELE CONSULT [id number] Notes Entered by: RAJEEV PADGETT 03 Dec 2019 0926 ------- ------- ------- ------- -- NETWORK RESULTS PHYSICA L THERAPY 22 OCT 2019 LOOK IN LUCIO HUNTER 12/02 [facility] ) TELE CONSULT [id number] Notes Entered by: YASMANY COLE 12 Dec 2019 1124 ------- ------- ------- ------- -- MRI result SUDARSHAN ANDRADE 12/11 [facility]) [facility]) OUTPATIENT [id number] ESHA MOTA 01/07 Released w/o Limitations [facility] [facility](O ptometr y Clinic Partner ship) [facility] [facility] [employer]([facility]) TELE CONSULT [id number] Notes Entered by: ЕКАТЕРИНА BURNETT 28 Jan 2020 1439 ------- ------- ------- ------- -- JULITO HARMON 01/27 Other Not Elsewhere Classified [facility] [facility]) [facility]([facility]) OUTPATIENT [id number] Notes Entered by: HARLEY SMITH 28 Jan 2020 1632 ------- ------- ------- ------- -- JOY PEARCE 01/28 Sick at Home/Quarter s [facility]) [facility]) TELE CONSULT [id number] Notes Entered by: NATALIIA HOGUE 02 Feb 2020 0926 ------- ------- ------- ------- -- COVID-1 9 Lab Results TANIA HOGUE 02/01 Released to Self Care [facility] ) TELE CONSULT [id number] Notes Entered by: BASILIO SELF ACE 02 Feb 2020 1250 ------- ------- ------- ------- -- JULITO HARMON 02/01 Other Not Elsewhere Classified [facility]) [facility] ) OUTPATIENT [id number] Nausea after sleep [facility] 02/10 Released w/o Limitations [facility] Ptarm an) [facility](Ort hopedic Clinic) OUTPATIENT [id number] Pain in right knee PERLITA MATTHEW 02/10 Released w/o Limitations [facility](O rthoped ic Clinic) [facility] ) TELE CONSULT [id number] Notes Entered by: LISET LAYNE 08 Mar 2020 1811 ------- ------- ------- ------- -- Lab results BEHZAD LAWRENCE 03/09 [facility](F Ptaig an) [facility] [employer]([facility] ) TELE CONSULT [id number] Notes Entered by: LISET LAYNE 22 Mar 2020 1302 ------- ------- ------- ------- -- Rad Results RADHA URIBE 03/22 Other Not Elsewhere Classified [facility](F Ptarmig an) [facility](Gas troentero logy Clinic) OUTPATIENT [id number] Unspeci fied abdomin al pain ELOY SANTOS 03/24 Released w/o Limitations [employer](G astroen terolog y Clinic) 0117C-AF- [facility]SU-[facility] ZEESHAN Garcia Between Visit [id number] 10/04 Discharge Disposition: Home or Self Care 0117C-A F-ASU-5 [facility] [place] Procedures Combined list of: 1) Procedures from Department of Veterans Affairs facilities going back up to thelast 18 months, not all VA non-surgical procedures are included; 2) All procedures from the Department of Defense facilities. Procedure Procedure Type Code Date Perfomer Comments Dwain e Non-Physician Phone Call To Patient/Provider Brief (5-10min) Non-Physician Phone Call To Patient/Provider Brief (5-10min) 23275 JULITO HOLLOWAY Ophthalmological New Patient Start Comprehensive Care Ophthalmological New Patient Start Comprehensive Care 90384 ESHA SANDOVAL [facility] Determination Of Refractive State Determination Of Refractive State [address] ESHA SANDOVAL DoD Waiver services; not otherwise [...] HR/SOON APT;5-10 MIN MED DIS 020 DoD No data available for this section Ambulato ry Pharmacy Social History Combined list of available smoking, tobacco, and other social history from Department of Defense and Veterans Affairs facilities. Social History Type Response Date Comment Sour e Smoking Status Never (less than 100 in lifetime) 07/09/2020 Unknown Organization Sex Representation Female 03/16/2020 Unknow n Organization This section is an empty social history section. [facility] Sexual Orientation Ambula tory Pharmacy Gender identity Ambulator y Pharmacy Assessment and Plan Combined list of future care activities from Department of Defense and Veterans Affairs facilities (e.g., assessment and plan notes, appointments, orders, and referrals). Additional future care activities may be listed in the Plan of Care section. Result Assessment and Plan Date Source Assessment and Plan Extracted from:Title : FORM DESIGNER: PAP, BC refill Author: DESTINY BARRIOS Date: 09/20/23 Encounter for screening for infections with a predominantly sexual mode of transmission -Screening per CDC recommendations ? -Pt aware she will be contacted if results return positive from labs collected at visit today, otherwise pt informed labs visible on [employer] online. -Verbalized understanding.? ? Ordered: Chlamydia/GC NAAT Panel ? Encounter for screening for malignant neoplasm of cervix Pap HX: December 2020: NILM/-- ? -She was instructed?that if her pap smear results are normal she will receive a message in [employer], ? encouraged to register on the platform [...] questions or concerns. ? Ordered: AP Cytology FORM DESIGNER ? Encounter for surveillance of contraceptive pills [...] refill(s), Maintenance, 1 tab(s) Oral Daily, Pharmacy: [facility] [Federal Rx: #84 last filled 09/20/23] Disposition:? 1. Is member deployable? Y? 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 3. Does member meet retention standards? Y? 4. Can member complete FA? Y? .............................. .............................. ............ DESTINY G. NURSE, , ANITA- [facility]? [address]? [place], [address] ? .............................. .............................. ............. ? Extracted from:Title: [...] thyroid issues. - she feels the?areas at yarsani are thinning and more sparse, but no specific areas of baldness.? - new hair growth noted along temples/ area of concern. - recommended to continue on her vits and supplements. - most likely is normal degree of shedding, but pat was encouraged to continue to monitor. ? Ordered: T3 Total Level TSH+Free T4 [id number] ? Extracted from:Title: generalized body aches, post [...] refill(s), Maintenance, 1 tab(s) Oral BID, Pharmacy: [facility] [Not filled] predniSONE(predniSONE 50 mg oral tablet), 1 tab(s), Oral, Daily, X 3 days, # 3 tab(s), 0 total refill(s), Acute, 1 tab(s) Oral Daily,x3 days, Pharmacy: [facility] [Not filled] Extracted from:Title: establish care, [...] Diff Comprehensive Metabolic Panel Iron and TIBC [id number] TSH w/Reflex Testing EPI P7812 Vit B12 and Folate [id number] ? 2.?Contraception pat reports last pap was [...] refill(s), Maintenance, 1 tab(s) Oral Daily, Pharmacy: [facility] [Not filled] ? Extracted from:Title: Eye [...] for evaluation today. Ordered: Determination Refractive State 37917 Ophthalmological Medical Xm&Eval Comprhnsv Estab Pt 1/> 27920 ? 2.?Bilateral myopia of eyes Stable OU.?Gave spec Rx Ordered: Determination Refractive State 91360 Ophthalmological Medical Xm&Eval Comprhnsv Estab Pt 1/> 88761 ? 3.?Bilateral regular astigmatism Stable OU,??Gave new spec Rx Ordered: Determination Refractive State 57365 Ophthalmological Medical Xm&Eval Comprhnsv Estab Pt 1/> 30784 ? Extracted from:Title: Office Clinic Note - [...] concerns. Ordered: Office Visit Level 3 Est 95727 ? 2.?Vaginal pain ?Pt presents with c/o [...] EPI P5897 Office Visit Level 3 Est 69696 ? 3.?Menstrual cramps Pt presents with c/o [...] concurred.? Ordered: Office Visit Level 3 Est 97167 ? 4.?Papanicolaou smear taken Ordered: Cytologic FORM DESIGNER [facility] 2486 Office Visit Level 3 Est 27451 ? 5.?Repeated prescription ?BC refilled as previously prescribed. Ordered: Microgestin /20 oral tablet, 1 tab(s), Oral, Daily, # 84 tab(s), 3 total refill(s), Maintenance, 1 tab(s) Oral Daily, Pharmacy: [facility] [Federal Rx: #84 last filled 12/20/20] Office Visit Level 3 Est 52173 ? Extracted from:Title: Headache F/U - Office [...] HAYES diary review. Pt will be leaving [facility] Jul and flying to [place]. 5. Daily neck stretches [...] ? Ordered: Office Visit Level 3 Est 83325 ? Extracted from:Title: Ambulatory Patient Education Author: [...] HAYES diary review. Pt will be leaving [facility] Jul and flying to [place] for the holidays. 5.? Daily neck stretches [...] Group Assessment and Plan Extracted from:Title : FORM DESIGNER: PAP, BC refill Author: DESTINY BARRIOS Date: 09/20/23 Encounter for screening for infections with a predominantly sexual mode of transmission -Screening per CDC recommendations ? -Pt aware she will be contacted if results return positive from labs collected at visit today, otherwise pt informed labs visible on [employer] online. -Verbalized understanding.? ? Ordered: Chlamydia/GC NAAT Panel ? Encounter for screening for malignant neoplasm of cervix Pap HX: December 2020: NILM/-- ? -She was instructed?that if her pap smear results are normal she will receive a message in [employer], ? encouraged to register on the platform [...] questions or concerns. ? Ordered: AP Cytology FORM DESIGNER ? Encounter for surveillance of contraceptive pills [...] refill(s), Maintenance, 1 tab(s) Oral Daily, Pharmacy: [facility] [Federal Rx: #84 last filled 09/20/23] Disposition:? 1. Is member deployable? Y? 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 3. Does member meet retention standards? Y? 4. Can member complete FA? Y? .............................. .............................. ............ DESTINY BARRIOS, , [facility] [employer]? [address]? [place], [address] ? .............................. .............................. ............. ? Extracted from:Title: Hair loss concerns. Author: JEAN DASILVA CHILD DEVELOPMENT DIRECTOR Date: 04/02/23 1.?Loss of scalp hair pat [...] thyroid issues. - she feels the?areas at yars[place] are thinning and more sparse, but no specific areas of baldness.? - new hair growth noted along temples/ area of concern. - recommended to continue on her vits and supplements. - most likely is normal degree of shedding, but pat was encouraged to continue to monitor. ? Ordered: T3 Total Level TSH+Free T4 [id number] ? Extracted from:Title: generalized body aches, post viral syndrome Author: JEAN DASILVA CHILD DEVELOPMENT DIRECTOR Date: 12/22/22 1.?Generalized body aches Pat reports [...] refill(s), Maintenance, 1 tab(s) Oral BID, Pharmacy: [facility] [Not filled] predniSONE(predniSONE 50 mg oral tablet), 1 tab(s), Oral, Daily, X 3 days, # 3 tab(s), 0 total refill(s), Acute, 1 tab(s) Oral Daily,x3 days, Pharmacy: [facility] [Not filled] Extracted from:Title: establish care, labs requested, med renewal Author: JEAN DASILVA, CHILD DEVELOPMENT DIRECTOR Date: 06/27/22 1.?Well female adult pat is [...] Diff Comprehensive Metabolic Panel Iron and TIBC [id number] TSH w/Reflex Testing EPI P7812 Vit B12 and Folate [id number] ? 2.?Contraception pat reports last pap was [...] refill(s), Maintenance, 1 tab(s) Oral Daily, Pharmacy: [facility] [Not filled] ? Extracted from:Title: Eye [...] for evaluation today. Ordered: Determination Refractive State 12637 Ophthalmological Medical Xm&Eval Comprhnsv Estab Pt 1/> 09617 ? 2.?Bilateral myopia of eyes Stable OU.?Gave spec Rx Ordered: Determination Refractive State 63209 Ophthalmological Medical Xm&Eval Comprhnsv Estab Pt 1/> 15890 ? 3.?Bilateral regular astigmatism Stable OU,??Gave new spec Rx Ordered: Determination Refractive State 18444 Ophthalmological Medical Xm&Eval Comprhnsv Estab Pt 1/> 52882 ? Extracted from:Title: Office Clinic Note - [...] concerns. Ordered: Office Visit Level 3 Est 34159 ? 2.?Vaginal pain ?Pt presents with c/o [...] EPI P5897 Office Visit Level 3 Est 02698 ? 3.?Menstrual cramps Pt presents with c/o [...] concurred.? Ordered: Office Visit Level 3 Est 27272 ? 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 5.?Repeated prescription ?BC refilled as previously prescribed. Ordered: Microgestin 1/20 oral tablet, 1 tab(s), Oral, Daily, # 84 tab(s), 3 total refill(s), Maintenance, 1 tab(s) Oral Daily, [facility]acy: [facility] [Federal Rx: #84 last filled 12/20/20] Office Visit Level 3 Est 49683 ? Extracted from:Title: Headache F/U - Office [...] HAYES diary review. Pt will be leaving [facility] Jul and [place]. 5. Daily neck stretches [...] ? Ordered: Office Visit Level 3 Est 07960 ? Extracted from:Title: Ambulatory Patient Education Author: [...] HAYES diary review. Pt will be leaving [facility] Jul and flying to [place]. 5.? Daily neck stretches - sports med handout provided 6.? Wear glasses when watching TV ? May consider daily prophylactic?if frequent HAYES s . Seek ER care for severe HAYES, vision changes, neuro deficits, fever, neck stiffness, trouble moving or speaking, any other severe/worsening sx. ??Will consider referral to Neurology if symptoms persist despite medication management. ? 10/01/2024 0006C[facility] Functional Status Combined list of recent functional and cognitive assessments recorded at [facility] Functional [place] Measurement (FIM) Scale: 1 = Total Assistance (Subject = 0% +), 2 = Maximal Assistance (Subject = 25% +), 3 = Moderate Assistance (Subject = 50% +), 4 = Minimal Assistance (Subject = 75% +), 5 = Supervision, 6 = Modified Salem (Device), 7 = Complete [place] (Timely, Safely). Assessment Date/Time Source Assessment Type Assessment Skill Assessment Score Assessment Details No data available for this section
[2024-10-01 13:39] LABS: MANUAL DIFF FLAG NO
[2024-10-01 13:53] LABS: Basophils Percent Auto 0.7 % (0-2); Eosinophils Absolute Auto 0.1 X10*3/uL (0.0-0.4); Eosinophils Percent Auto 1.3 % (0-4); Hematocrit 41.1 % (37.0-47.0); Hemoglobin 13.6 g/dl (12.0-16.0); Imm Gran Abs Auto 0.02 X10*3/uL (0.00-0.03); Imm Gran Pct Auto 0.4 % (0.0-0.4); Lymphocytes Absolute Auto 1.7 X10*3/uL (1.2-4.9); Lymphocytes Percent Auto 30.1 % (20-40); Mean Corpuscular HGB Conc 33.1 g/dl (31.0-35.0); Mean Corpuscular Hemoglobin 29.2 pg (27.0-33.0); Mean Corpuscular Volume 88.2 fL (80.0-98.0); Mean Platelet Volume 10.7 fL (9.4-12.3); Monocytes Absolute Auto 0.3 X10*3/uL (0.1-1.2); Monocytes Percent Auto 4.7 % (2-11); Neutrophils Absolute Auto 3.5 x10*3/uL (2.0-8.3); Neutrophils Percent Auto 62.8 % (45-73); Platelet Count 248 X10*3/uL (160-400); Red Blood Count 4.66 X10*6/uL (4.20-5.50); Red Cell Distribution Width 12.3 % (11.0-16.0); White Blood Count 5.5 X10*3/uL (4.8-10.8)
[2024-10-01 14:26] LABS: Alanine Aminotransferase 13 U/L (0-31); Albumin Level 4.4 g/dL (3.5-5.0); Alkaline Phosphatase 49 U/L (39-117); Anion Gap 12 (12-20); Aspartate Amino Transferase 22 U/L (5-31); Bilirubin Total 0.4 mg/dL (0.0-1.0); Blood Urea Nitrogen 9 mg/dL (9-16); Calcium 9.8 mg/dL (8.4-10.2); Carbon Dioxide 24 mmol/L (22-29); Chloride 107 mmol/L (96-108); Cholesterol 216 mg/dL (<200); Estimated Glomerular Filt Rate > 60; Glucose Fasting 87 mg/dL (60-99); HDL Cholesterol 47 mg/dL (>40); Iron 159 mcg/dL (30-160); LDL Cholesterol Calculated 142 mg/dL (<100); Percent Iron Saturation 45 % (15-50); Sodium 139 mmol/L (135-145); Total Iron Binding Capacity 352 mcg/dL (228-428); Total Protein 8.1 g/dL (6.5-8.0); Triglycerides 137 mg/dL (<150); Unsaturated Iron Binding 193 ug/dL
[2024-10-01 14:44] LABS: Vitamin D 25-OH Total 37.6 ng/mL (>30)
== END 2024-10-01 10:06 | disposition home or self-care (01) ==
LOC: HO.HMGCLDS 10:05
PROVIDERS: PCP Internal Medicine; Visit Provider Internal Medicine
DX: Z00.01 Encounter for general adult medical examination with abnormal findings (principal); Z71.89 Other specified counseling; Z78.9 Other specified health status
CPT/HCPCS: 36415; 80053; 80061; 82306; 83540; 85025; 96127; 99497

== ENCOUNTER 2024-12-09 14:08 | Outpatient (AMB) | payer OTHER, SELFPAY ==
--- NOTE | 2024-12-09 14:14 | A.OFFVIS_ITS ---
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 She is not having any pay station attendant concerns she has been on oral contraceptive pills same ones for many many years she is to her partner was in the they have moved around she was originally from [place] then they lived elsewhere they live for 3 years in [place] and 2 years in [place] and now they are here. She is on oral contraceptive pills she only takes the active pills and skips the days when she would be taking the inactive pills for 7 days and then restarts and has never been late or made a mistake with them and is comfortable with this plan. She does need a refill as she is on her last pack. She is very certain she had a Pap smear that was negative in September of 2023 and she has all her records from the . She has absolutely no concerns about STIs and declines all testing and she has no abnormal discharge. She was told her cholesterol was a little bit high so she has been working on eating healthier and losing a little bit of weight. She was overweight and prediabetic as a 13-year-old so she is conscious of weight and healthy eating and is working on her improvements. [facility] Medical History Uses control Surgical History No pertinent past surgical history Family History (Updated 12/09/24 @ 14:14 by Rena Ahn MA) Father Mental health disorder Alcoholism Mother Graves disease Sister Hypothyroidism (acquired) Paternal Aunt Breast cancer Social History (Updated 10/01/24 @ 10:37 by Lesley Hopper MD) Housing: House Patient Tobacco Use Status: Never used Tobacco e-Cigarette/Vaping Use: Never Used Patient : No service: No Current occupational status: employed Current occupation: Works for [employer] Cognitive needs: No Hearing needs: No Vision needs: Yes Female Reproductive History Menstrual Age of Menarche: 10 Date of last menstrual period: 12/06/24 (Still present ) control method: pills Total pregnancies: 0 Date of last pap smear: 09/20/23 (normal) History of abnormal pap smear: No Physical Exam Vital Signs: Last Vital Signs BP 110/72 12/09/24 14:16 BMI result Body Mass Index 27.3 Const General: healthy appearing, comfortable, no acute distress, well developed and alert Nutritional Appearance: average body habitus Orientation/consciousness: patient oriented x3 Limitations: no limitations HEENT Head: Yes normocephalic Neck Neck: Yes normal visual inspection Chest Chest palpation & inspection: normal inspection of the chest Breast/axilla inspection: normal inspection of the breasts and normal inspection of the axillae Breast/axilla palpation: normal palpation of the breasts and normal palpation of the axillae Resp Effort & Inspection: normal respiratory effort GI Inspection: Yes normal to inspection, No Abdominal wall edema and No distended Palpation (GI): Soft to palpation and nontender Other: Normal external exam vagina is pink and moist cervix is nulliparous pink smooth healthy appearing with normal scant healthy appearing mucus. Cervix long close thick mobile nontender uterus midposition mobile nontender adnexa nontender good muscle tone with Kegel. General: Yes bladder normal to palpation External Female Exam: normal external appearance and normal appearance of the urethra Speculum Exam - Vagina: normal appearance of the vagina, normal palpation and normal vaginal discharge Speculum Exam - Cervix: normal appearance of the cervix, normal palpation and nontender Bimanual exam- vagina & uterus: normal bimanual exam, normal palpation, uterine size normal, bladder normal to palpation, consistency normal, normal palpation, uterine mobility normal, uterine shape normal, No Cervical tenderness present, non-tender and no cervical motion tenderness Bimanual Exam- Adnexa, other: normal adnexae, no masses, normal and No adnexal tenderness Neuro General: patient oriented x3 Assessment & Plan Assessment & Plan (1) Counseling for control, oral contraceptives: Comment: Has been on the same formulation of OCPs for years takes only the active pills and skips placebos or OCPs for 7 days then restarts again exactly 7 days later and has never had a mistake. Refill of same sent. Code(s): Z30.09 - Encounter for other general counseling and advice on contraception Category: Medical (2) Cervical cancer screening: Comment: Is very certain her last Pap smear was September of 2023 in [place] and was negative and all were negative. . She has a print out of her records at home Code(s): Z12.4 - Encounter for screening for malignant neoplasm of cervix Category: Medical (3) Well woman exam with routine gynecological exam: Code(s): Z01.419 - Encounter for gynecological examination (general) (routine) without abnormal findings Category: Medical Plan -----Discussed in this visit the following: healthy balanced diet, regular and consistent exercise, getting recommended health screens, doing the best she can for her particular health concerns, kegel exercises, pap smear screening and followup recommendations, mammography screening and SBE, normal changes in cycles in her life stage--- .----I reviewed available options for Control Methods and their associated side effect profiles. In particular, we discussed the method most of interest to her. She is doing her best to try and eat healthier to improve her health overall. She intends to stay on the control pills and she has been on them for several years now and does well by skipping the placebo and is very on track with restarting the next pack exactly on time and has never been late I did review with her the consequences of starting late and that that is when unintended pregnancies occur. She feels pretty clear that she does not intend to have children. She says she is told this to her partner. She works at [employer] he is in the She thinks they will be here for another 3-4 years. RTC 1 year discussed the options for STI testing if she ever had a concern but she totally did not and declined testing Discussed the Pap smears will be every 3 years in her age group. Medications: Changed From norethindrone ac-eth estradiol 1-20 mg-mcg () 1 tab PO DAILY To norethindrone ac-eth estradiol 1-20 mg-mcg () Take as directed always remembering to restart new pack 7 days after the last active pill 1 tab PO DAILY 63 tabs 4RF Coding Level of Care Code New Pt Prev Care 18-39yr([id number] Diagnoses Counseling for control, oral contraceptives Z30.09 Cervical cancer screening Z12.4 Well woman exam with routine gynecological exam Z01.419
[2024-12-09 14:16] VITALS: BP 110/72; BMI 27.3
--- OUTSIDE RECORDS SUMMARY | 2024-12-09 15:31 | XMS_ITS | Continuity of Care Document ---
Author Name [facility] Organization [facility] Care Team Providers Care Key Sander Name Role Phone [facility] Unavailable Unavailable Problems Combined list of problems from [facility] and [facility] facilities. It does not include entries that were removed or entered in error. Problem Status Onset Date Problem Type Date of Resolution Comments Source Bilateral myopia of eyes Active Condition 0006C-Joint Ba [facility] Bilateral regular astigmatism Active Condition 0006C-Joint B [facility] Contraception Active Condition [facility] Generalized body aches Active Condition [facility] Loss of scalp hair Active Condition [facility] Morbid obesity Active Condition Unknown Organization Vitreous floaters of left eye Active Condition 0006C-Joint B [facility] Well female adult Active Condition 0094 C-[facility] Myopia, bilateral Active Condition [facility] Regular astigmatism, bilateral Active Condition [facility] Pain in right knee Active Condition [facility] Medications Combined list of outpatient medications from [facility] and [facility] facilities.Medications provided include 1) outpatient medications from the last 15 months, and 2) patient-reported medications. Medication Details Route Status Patient Instructions Prescription Expires Prescription Number Last Dispense Date Ordering Provider Order Date Order Qty Source AMOX TR-POTASSIU M CLAVULANATE (AMOXICILLI N/POTASSIUM CLAV), 875-125 MG, TABLET, ORAL, [facility], 20 ea. BOTTLE Active [id number] 4 2023 14 Pharmac y Data Transac tion Service Facilit y ibuprofen 0 total refill(s ), Audrey acosta Discont inued 12/22/20222022 0006C-[employer] [facility] ibuprofen 600 mg oral tablet 1 tab(s), Oral, BID, # 40 tab(s), 0 total refill(s ), Maintena karla, Pharmacy : [facility] Oral (given by mouth) Ordered 3 2022 40.0 [facility]94C[facility] Microgestin 1/20 oral tablet 1 tab(s), Oral, Daily, # 84 tab(s), 3 total refill(s ), Maintena ile, Pharm[facility] : [facility] Oral (given by mouth) Discont inued 06/27/2022 2 2021 84.0 0006C-[facility]int [facility]20 oral tablet 1 tab(s), Oral, Daily, # 84 tab(s), 3 total refill(s ), Maintena ile, Pharmacy : [facility] Oral (given by mouth) Ordered 3 2021 84.0 [facility]94C[facility] Microgestin 1/20 oral tablet tab(s), Oral, Daily, 0 total refill(s ), Maintena nce Oral (given by mouth) Discont inued 12/20/20202020 0006C-[facility] [facility] 1/20 oral tablet 1 tab(s), Oral, Daily, # 84 tab(s), 3 total refill(s ), [facility] : [facility] Oral (given by mouth) Ordered 09/21/2024 4 2023 84.0 [facility] Microgestin 1/20 oral tablet 1 tab(s), Oral, Daily, # 84 tab(s), 3 total refill(s ), [facility] Oral (given by mouth) Discont inued 03/17/2022 2 2021 84.0 0006C-[employer] [facility] predniSONE 50 mg oral tablet 1 tab(s), Oral, Daily, X 3 days, # 3 tab(s), 0 total refill(s ), Acute, Pharmacy : [facility] Oral (given by mouth) Complet ed [...] Site Reaction Lot Number CVX Code Drug Disability Program Navigator Status Comments Source COVID Vaccine Pfizer 2020 FLORYRYSHAILESHINNE Y Shoul elsi, left (delt oid) [id number] PFIZER complet ed COVID Vaccine Pfizer 01/14/21 Given 0006C-J [employer]int Base [facility] COVID Vaccine Pfizer 2020 VICAKINPMCGEO RGE Shoul elsi, right (delt oid) [id number] PFIZER complet ed COVID Vaccine Pfizer 12/24/20 Given 0006C-[employer] [place] [facility] Results Combined list of recent [...] 0.5% for GC. At this prevalence, the TLM Com r estimates 5% the overall sensitivity and specificity for CT to be 94.1% and 99.6% respectivel y. For GC the sensitivity and specificity rates are 97.1% and he 99.8%. The Positive Predictive Value and the Negative Predictive Value calculated by the TLM Com r using the above clinical trial data [...] for proper notificatio n. 5600A-[facility] EPILAB [employer] [facility] Infectio us Disease Chlamydia NAAT Not Detected (09/20/23 11:07 AM) 09/20 N 5600A-[facility] EP[facility]AB AP Specimen s AP Cyto UNDERWEAR WELTER Patient: Crow Foley Specimen #: [id number] Patholog ist: Accessio n: 4 [facility] DEPARTME NT OF PATHOLOG Y [address] [place] [address] Cytology Gynecolo gic Report Patient: Crow Foley Specimen #: [id number] [facility] ID:: [id number] Encounte r #: [id number] Taken: 4 11:02 /Age: 5 2000 (Age: [...] Out Specimen # Interpre tation 12/28/19 21 [id number] Negative for Intraepi thlial Lesion or Malignan cy CPT Codes: A; 73254 The Pap test is a screenin g test for precurso rs of squamous cell carcinom a with an irreduci ble false negative rate of around 5%. It is not designed to detect glandula r lesions. A negative test does not ensure that no disease is present. 09/20-[facility] Chemistr y T4 Free Direct.LC 1.09 ng/dL 04/02 Result Comment: [facility]formed At: [facility] [address] [place], [place] [id number] Dony Gould MD Ph:[phone] 00 -[facility] Chemistr y TSH LC 2.170 uIU/mL 04/02-[facility] Chemistr y T3 Total 1.64 ng/mL 0.80 - 2.00 04/02 N Interpretiv e Data: METHODOLOGY : Testing performed by electrochem ilTalking Datan t immunoassay (ECLIA). 5600A-[employer] FSAM EPILAB Hematolo gy WBC 5.2 10^3/uL 4.5 - 11.0103 06/27 N [facility] Hematolo gy RBC 4.74 10^6/uL 3.97 - 5.70594 06/27 N [facility] Hematolo gy MCHC 34.0 g/dL 32.0 - 36.0 06/27 N [facility] Hematolo gy MPV 8.5 fL 6.8 - 10.2 06/27 N [facility] Hematolo gy RDW 12.7 % 12.0 - 14.6 06/27 N [facility] Hematolo gy Platelets 226 10^3/uL 150 - 573801 06/27 N [facility] Hematolo gy MCV 86.6 fL 80.0 - 100.0 06/27 N [facility] Hematolo gy MCH 29.4 pg 28.0 - 34.0 06/27 N [facility] Hematolo gy Hemoglobin 13.9 g/dL 12.0 - 16.0 06/[address] Hematolo gy Hematocrit 41.1 % 36.0 - 46.0 06/27 N [facility] Chemistr y TIBC LC 410 ug/dL 06/[address] Chemistr y Iron Sat LC 25 % 06/27 Result Comment: Performed At: 01 [facility] [address], [place] [id number] Dony Gould MD Ph:[phone] [facility] Chemistr y Iron Lvl.LC 102 ug/dL 06/[address] Chemistr y UIBC LC 308 ug/dL 06/[address] Hematolo gy Monocyte % Auto 4.3 % 3.5 - 11.4 06/[address] Hematolo gy Eosinophil % Auto 1.8 % 0.0 - 5.0 06/27 [facility] Hematolo gy Lymphocyte % Auto 33.1 % 15.8 - 44.5 06/27 [facility] Hematolo gy Neutrophil % Auto 60.2 % 40.0 - 80.0 06/27 [facility] Hematolo gy [place] Absolute 0.2 0.1 - 0.8 06/27 [facility] Hematolo gy Eos Absolute 0.1 10^3/uL 0.0 - 0.4103 06/27 [facility] Hematolo gy Neutro Absolute 3.2 10^3/uL 1.8 - 7.0103 06/27 [facility] Hematolo gy Lymph Absolute 1.7 10^3/uL 0.8 - 3.2103 06/27 [facility] Hematolo gy Basophil % Auto 0.6 % 0.0 - 2.7 06/27 [facility] Hematolo gy Baso Absolute 0.0 x10^3/mc L 0.0 - 0.2103 06/27 [facility] Chemistr y Thyrotropi n.EPI 1.250 uIU/mL 06/27 Result Comment: INTERPRETAT ION(S): Recommend: TPO/Thyrope roxidase Antibody when TSH result is > 4.2 uIU/mL Performed by: Epidmiology Laboratory Service [facility] [address] [place] [id number] [facility] Chemistr y Vit B12 Lvl.LC 321 pg/mL 06/27 [facility] Chemistr y Folate.LC 10.5 ng/mL 06/27 Result Comment: A serum folate concentrati on of less than 3.1 ng/mL is considered to represent clinical deficiency. Performed At: [facility] [address], [place] [id number] Dony Gould MD Ph:[phone] [facility] Chemistr y Potassium Lvl 4.4 mmol/L 3.5 - 5.1 06/[address] Group Chemistr y Alk Phos 57.0 U/L 38.0 - 126.0 06/[address] Chemistr y Albumin 4.3 g/dL 3.5 - 5.0 06/[address] Chemistr y Chloride 102 mmol/L 98 - 107 06/[address] Chemistr y CO2 30.0 mmol/L 22.0 - 30.0 06/[address] Chemistr y BUN 11.0 mg/dL 7.0 - 17.0 06/[address] Chemistr y Bilirubin Total 0.40 mg/dL 0.20 - 1.30 06/[address] Chemistr y Sodium 139 mmol/L 137 - 145 06/[address] Chemistr y Calcium 10.5 mg/dL 8.4 - 10.2 06/[address] Chemistr y ALT 12.0 U/L 0.0 - 35.0 06/[address] Chemistr y Glucose Lvl 91 mg/dL 74 - 106 06/[address] [place] [address] Chemistr y AST 23 U/L 14 - 36 06/[address] [place] [address] Chemistr y Protein Total 8.2 g/dL 6.0 - 8.3 06/[address] Chemistr y Globulin 3.9 2.4 - 3.5 06/[address] Chemistr y A/G Ratio 1.1 06/[address] Chemistr y AGAP 11.4 10.0 - 20.0 06/[address] Chemistr y Creatinine Level 0.80 mg/dL 0.52 - 1.04 06/[address] Chemistr y eGFR CKD EPI 106 [...] 0094A-[facility] AP Specimen s Cytologic UNDERWEAR WELTER.[facility] Col: [id number]@ 1102 THIN PREP-CE( LBC CERVICAL ) Hcp: Mel MACEDO Loc: REMOTE L Ranjanai eugenia Lab: CLINICAL [place] [id number] BAG [address] SL Accessio n #: [id number] CYTO UNDERWEAR WELTER C:[id number] CoPath Report Patient: CROW FOLEY Specimen #: [id number] Patholog ist: Accessio n: 1 [facility] DEPARTME NT OF PATHOLOG Y [address] [place] [address] Cytology Gynecolo gic Report Patient: CROW FOLEY Specimen #: [id number] [facility] ID:: [id number] /Age: 6 2000 (Age: 20) Reported [...] that no disease is present. CPT Codes: 47393-SF ;95061 12/20 0006A-[facility] Molecula r [...] 0.5% for GC. At this prevalence, the TLM Com r estimates the overall sensitivity and specificity for CT to be 94.1% and 99.6% respectivel y. For GC the sensitivity and specificity rates are 97.1% and 99.8%. The Positive Predictive Value and the Negative Predictive Value calculated by the TLM Com r using the above clinical trial data [...] n. Performed by: Epidemiolog y Laboratory Service [facility] [address]ld[address]. [address] [address] [place] [address] 0006A-[employer] [facility] Disease Chlamydia NAAT.EPI NEGATIVE 12/20 Result Comment: INTERPRETAT ION(S): 0006A-[employer] [facility] us Disease [place]ima Species Negative 7 (12/20/20 [...] vaginal discharge characteris tics. 0006A-[employer] [facility] Disease Gardnerell a vaginalis Negative [...] test for therapeutic success or failure. The [employer] VPIII Microbial Identificat ion Test is for [...] and vaginal discharge characteris tics. 0006A-Leydi nt [facility] Infectio us Disease Trichomona s [...] test for therapeutic success or failure. [employer] VPIII Microbial Identificat ion Test is for [...] vaginal discharge characteris tics. 0006A-[employer] [facility] Vital Signs Combined list of inpatient and outpatient Vital Signs from Department of Defense and Veterans Affairs, ranging from 12 months to all on record, depending upon the facility. Vital Sign Value Date Comments Source Blood Pressure Manual Automatic 04/02/2023 12:29: [address] [place] [address] Temperature Tympanic 37 Ashanti 04/02/2023 12:29:[address] [place] [address] BP Site Left arm 04/02/2023 12:29:[address] [place] [address] Respiratory Rate 16 br/min 04/02/2023 12:29:[address] [place] [address] Mean Arterial Pressure, Calc 100 mm[Hg] 04/02/2023 12:29:[address] [place] [address] Peripheral Pulse Rate 79 bpm 04/02/2023 12:29: [address] [place] [address] Group Systolic Blood Pressure 131 mm[Hg] 04/02/20 23 12:29:[address] [place] [address] Group Diastolic Blood Pressure 84 mm[Hg] 023 12:29:[address] [place] [address] Group Systolic Blood Pressure 113 mm[Hg] 06/27/20 [...] Arterial Pressure, Calc 93 mm[Hg] 09/20/2023 22:10:00 [facility] Respiratory Rate 14 br/min 09/20/2023 22:10:00 [facility] Temperature Oral 36.8 Ashanti 09/20/2023 22:10:00 [facility] Temperature Oral 36.6 Ashanti 12/20/2020 18:23:[address] [place] [address] Blood Pressure Manual Automatic 12/20/2020 18:23:[address] [place] [address] BP Site Right arm 12/20/2020 18:23:[address] [place] [address] Systolic Blood Pressure 130 mm[Hg] 12/21/19 18:23:[address] [place] [address] Diastolic Blood Pressure 86 mm[Hg] 021 18:23:[address] [place] [address] Respiratory Rate 20 br/min 12/20/2020 18:23:[address] [place] [address] Peripheral Pulse Rate 86 bpm 12/20/2020 18:23:[address] [place] [address] Mean Arterial Pressure, Calc 101 mm[Hg] 12/20/2020 18:23:[address] [place] [address] Respiratory Rate 14 br/min 07/09/2020 23:49:[address] [place] [address] Peripheral Pulse Rate 87 bpm 07/09/2020 23:49:[address] [place] [address] Mean Arterial Pressure, Calc 90 mm[Hg] 07/09/2020 23:49:[address] [place] [address] BP Site Right arm 07/09/2020 23:49:[address] [place] [address] Systolic Blood Pressure 112 mm[Hg] 07/09/20 20 23:49:[address] [place] [address] Diastolic Blood Pressure 79 mm[Hg] 020 23:49:[address] [place] [address] Blood Pressure Manual Automatic 07/09/2020 23:49:[address] [place] [address] Encounters Combined list of: 1) Encounters from Department of Veterans Affairs facilities going backup to the last 18 months, not all VA inpatient encounters are included; 2) Encounters from the Department of Defense facilities going backup to 280 months. Location Location Details Encounter Type Encounter Number Reason For Visit Attending Provider ADM Date DC Date Status Disposition Source [facility]) OUTPATIENT [id number] EFMP klarissa BATESKHADIJAH CHOWDHURY Vidya 07/21 Released w/o Limitations [facility]) [facility]) OUTPATIENT [id number] !EFMP HAMILTON MAIN 08/07 Released w/o Limitations [facility]) [facility] ) OUTPATIENT [id number] right knee pain JEMIMA PADILLA 10/08 Released w/o Limitations [facility]) [facility] ) TELE CONSULT [id number] Notes Entered by: BASILIO SELF ACE 13 Oct 2019 1318 ------- ------- ------- ------- -- JULITO BRAR 10/12 Other Not Elsewhere Classified [facility] ) TELE CONSULT [id number] Notes Entered by: RAJEEV PADGETT 03 Dec 2019 0926 ------- ------- ------- ------- -- NETWORK RESULTS PHYSICA L THERAPY 22 OCT 2019 LOOK IN LUCIO HUNTER 12/02 [facility] ) TELE CONSULT [id number] Notes Entered by: YASMANY COLE 12 Dec 2019 1124 ------- ------- ------- ------- -- MRI result SUDARSHAN ANDRADE 12/11 [facility]) [facility] [facility]) OUTPATIENT [id number] ESHA MOTA 01/07 Released w/o Limitations [facility](O ptometr y Clinic Partner ship) [employer]([facility]) TELE CONSULT [id number] Notes Entered by: ЕКАТЕРИНА BURNETT 28 Jan 2020 1439 ------- ------- ------- ------- -- JULITO HARMON 01/27 Other Not Elsewhere Classified [employer]([facility]) [employer]([facility]) OUTPATIENT [id number] Notes Entered by: HARLEY SMITH 28 Jan 2020 1632 ------- ------- ------- ------- -- JOY PEARCE 01/28 Sick at Home/Quarter s [facility] [facility]) [facility]) TELE CONSULT [id number] Notes Entered by: NATALIIA HOGUE 02 Feb 2020 0926 ------- ------- ------- ------- -- COVID-1 9 Lab Results TANIA HOGUE 02/01 Released to Self Care [facility] ) TELE CONSULT [id number] Notes Entered by: BASILIO SELF ACE 02 Feb 2020 1250 ------- ------- ------- ------- -- JULITO HARMON 02/01 Other Not Elsewhere Classified [facility]) [facility] [employer]([facility] ) OUTPATIENT [id number] Nausea after sleep [facility] 02/10 Released w/o Limitations [facility]([facility]) [facility] [employer](Ort hopedic Clinic) OUTPATIENT [id number] Pain in right knee PERLITA MATTHEW 02/10 Released w/o Limitations [facility] [employer](O rthoped ic Clinic) [facility] [facility] [employer]([facility] ) TELE CONSULT [id number] Notes Entered by: LISET LAYNE 08 Mar 2020 1811 ------- ------- ------- ------- -- Lab results DANIEL FELICIANOSERGIOBEHZAD 03/09 [employer] [facility](F Ptarmig an) [facility]([facility] ) TELE CONSULT [id number] Notes Entered by: LISET LAYNE 22 Mar 2020 1302 ------- ------- ------- ------- -- Rad Results KOTHARI RADHA EDWARDS 03/22 Other Not Elsewhere Classified [facility] [employer](F Ptarmig an) [facility] [employer](Gas troentero logy Clinic) OUTPATIENT [id number] Unspeci fied abdomin al pain ELOY SANTOS 03/24 Released w/o Limitations [email or web address](G astroen terolog y Clinic) Procedures Combined list of: 1) Procedures from Department of Veterans Affairs facilities going back up to thelast 18 months, not all VA non-surgical procedures are included; 2) All procedures from the Department of Defense facilities. Procedure Procedure Type Code Date Perfomer Comments Sourc e No data available for this section Ambulato ry Pharmacy Non-Physician Phone Call To Patient/Provider Brief (5-10min) Non-Physician Phone Call To Patient/Provider Brief (5-10min) [address] [facility] Ophthalmological New Patient Start Comprehensive Care Ophthalmological New Patient Start Comprehensive Care 56126 ESHA SANDOVAL Determination Of Refractive State Determination Of Refractive State [address]57 ESHA SANDOVAL Waiver services; not otherwise specified (NOS) ELOY [...] lifetime) 07/09/2020 Unknown Organization Sex Representation Female (finding) 03/16/2020 Unknown Organization Sexual Orientation Ambula tory Pharmacy Gender [...] Source Assessment and Plan Extracted from:Title : UNDERWEAR WELTER: PAP, BC refill Author: NURSEDESTINY Date: 09/20/23 Encounter for screening for infections with a predominantly sexual mode of transmission -Screening per CDC recommendations ? -Pt aware she will be contacted if results return positive from labs collected at visit today, otherwise pt informed labs visible on [employer] online. -Verbalized understanding.? ? Ordered: Chlamydia/GC NAAT Panel ? Encounter for screening for malignant neoplasm of cervix Pap HX: December 2020: NILM/-- ? -She was instructed?that if her pap smear results are normal she will receive a message in [employer], ? encouraged to register on the platform [...] PAP will be due in?3 years,? ? ?Sep?2026.? ? She verbalized understanding of information/results and had no further questions or concerns. ? Ordered: AP Cytology UNDERWEAR WELTER ? Encounter for surveillance of contraceptive pills [...] questions or concerns. ? Orders: norethindrone-ethinyl estradiol(Microgestin /20 oral tablet), 1 tab(s), Oral, Daily, # 84 tab(s), 3 total refill(s), Maintenance, 1 tab(s) Oral Daily, Pharmacy: [facility] [Federal Rx: #84 last filled 09/20/23] Disposition:? 1. Is member deployable? Y? 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 3. Does member meet retention standards? Y? 4. Can member complete FA? Y? .............................. .............................. ............ DESTINY BARRIOS, , ALISHA- [facility]? [address]? [place], [address] ? .............................. .............................. ............. ? Extracted from:Title: [...] thyroid issues. - she feels the?areas at cheondoism are thinning and more sparse, but no specific areas of baldness.? - new hair growth noted along temples/ area of concern. - recommended to continue on her vits and supplements. - most likely is normal degree of shedding, but pat was encouraged to continue to monitor. ? Ordered: T3 Total Level TSH+Free T4 [id number] ? Extracted from:Title: generalized body aches, post [...] refill(s), Maintenance, 1 tab(s) Oral BID, Pharmacy: [facility] [Not filled] predniSONE(predniSONE 50 mg oral tablet), 1 tab(s), Oral, Daily, X 3 days, # 3 tab(s), 0 total refill(s), Acute, 1 tab(s) Oral Daily,x3 days, Pharmacy: [facility] [Not filled] Extracted from:Title: establish care, [...] Diff Comprehensive Metabolic Panel Iron and TIBC [id number] TSH w/Reflex Testing EPI P7812 Vit B12 and Folate [id number] ? 2.?Contraception pat reports last pap was [...] Maintenance, 1 tab(s) Oral Daily, Pharmacy: [facility] [Not filled] ? Extracted from:Title: Eye [...] for evaluation today. Ordered: Determination Refractive State 86575 Ophthalmological Medical Xm&Eval Comprhnsv Estab Pt 1/> 87723 ? 2.?Bilateral myopia of eyes Stable OU.?Gave spec Rx Ordered: Determination Refractive State 09533 Ophthalmological Medical Xm&Eval Comprhnsv Estab Pt 1/> 57342 ? 3.?Bilateral regular astigmatism Stable OU,??Gave new spec Rx Ordered: Determination Refractive State 39935 Ophthalmological Medical Xm&Eval Comprhnsv Estab Pt /> 66128 ? Extracted from:Title: Office Clinic Note - [...] concerns. Ordered: Office Visit Level 3 Est 03372 ? 2.?Vaginal pain ?Pt presents with c/o [...] EPI P5897 Office Visit Level 3 Est 23351 ? 3.?Menstrual cramps Pt presents with c/o [...] concurred.? Ordered: Office Visit Level 3 Est 32325 ? 4.?Papanicolaou smear taken Ordered: Cytologic UNDERWEAR WELTER [facility] 3479 Office Visit Level 3 Est 90455 ? 5.?Repeated prescription ?BC refilled as previously prescribed. Ordered: Microgestin /20 oral tablet, 1 tab(s), Oral, Daily, # 84 tab(s), 3 total refill(s), Maintenance, 1 tab(s) Oral Daily, Pharmacy: [facility] [Federal Rx: #84 last filled 12/20/20] Office Visit Level 3 Est 72236 ? Extracted from:Title: Headache F/U - Office [...] HAYES diary review. Pt will be leaving [facility] Jul and flying to [place] for the holidays. 5. Daily neck stretches [...] ? Ordered: Office Visit Level 3 Est 44072 ? Extracted from:Title: Ambulatory Patient Education Author: [...] HAYES diary review. Pt will be leaving [facility] Jul and flying to [place] for the holidays. 5.? Daily neck stretches - sports med handout provided 6.? Wear glasses when watching TV ? May consider daily prophylactic?if frequent HAYES s . Seek ER care for severe HAYES, vision changes, neuro deficits, fever, neck stiffness, trouble moving or speaking, any other severe/worsening sx. ??Will consider referral to Neurology if symptoms persist despite medication management. ? 12/09/2024 0094C[facility] Assessment and Plan Extracted from:Title : UNDERWEAR WELTER: PAP, BC refill Author: DESTINY BARRIOS Date: 09/20/23 Encounter for screening for infections with a predominantly sexual mode of transmission -Screening per CDC recommendations ? -Pt aware she will be contacted if results return positive from labs collected at visit today, otherwise pt informed labs visible on [employer] online. -Verbalized understanding.? ? Ordered: Chlamydia/GC NAAT Panel ? Encounter for screening for malignant neoplasm of cervix Pap HX: December 2020: NILM/-- ? -She was instructed?that if her pap smear results are normal she will receive a message in [employer], ? encouraged to register on the platform [...] PAP will be due in?3 years,? ? ?b?2026.? ? She verbalized understanding of information/results and had no further questions or concerns. ? Ordered: AP Cytology UNDERWEAR WELTER ? Encounter for surveillance of contraceptive pills [...] refill(s), Maintenance, 1 tab(s) Oral Daily, Pharmacy: [facility] [Federal Rx: #84 last filled 09/20/23] Disposition:? 1. Is member deployable? Y? 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 3. Does member meet retention standards? Y? 4. Can member complete FA? Y? .............................. .............................. ............ DESTINY Torrez NURSE, , [facility]? [address]? [place], [address] ? .............................. .............................. ............. ? Extracted from:Title: Hair loss concerns. Author: JEAN DASILVA DIRECTOR OF [facility] Date: 04/02/23 1.?Loss of scalp hair pat [...] thyroid issues. - she feels the?areas at cheondo[place] are thinning and more sparse, but no specific areas of baldness.? - new hair growth noted along temples/ area of concern. - recommended to continue on her vits and supplements. - most likely is normal degree of shedding, but pat was encouraged to continue to monitor. ? Ordered: T3 Total Level TSH+Free T4 [id number] ? Extracted from:Title: generalized body aches, post [...] refill(s), Maintenance, 1 tab(s) Oral BID, Pharmacy: [facility] [Not filled] predniSONE(predniSONE 50 mg oral tablet), 1 tab(s), Oral, Daily, X 3 days, # 3 tab(s), 0 total refill(s), Acute, 1 tab(s) Oral Daily,x3 days, Pharmacy: [facility] [Not filled] Extracted from:Title: establish care, [...] Diff Comprehensive Metabolic Panel Iron and TIBC [id number] TSH w/Reflex Testing EPI P7812 Vit B12 and Folate [id number] ? 2.?Contraception pat reports last pap was [...] Maintenance, 1 tab(s) Oral Daily, Pharmacy: [facility] [Not filled] ? Extracted from:Title: [facility] Office Visit Note Author: ESHA SANDOVAL M, OD Date: 04/27/21 1.?Vitreous floaters of left eye ?Round white focal area in superonasal periphery suggestive of vitreal retinal tuft vs operculated hole vs chorioretinal scar. Unclear if this lesion is causing paracentral fixed spot in patients vision. It was noted 1 y/a when pt was asymptomatic. Referring to [address] Lei for evaluation today. Ordered: Determination Refractive State 77701 Ophthalmological Medical Xm&Eval Comprhnsv Estab Pt 1/> 02505 ? 2.?Bilateral myopia of eyes Stable OU.?Gave spec Rx Ordered: Determination Refractive State 45911 Ophthalmological Medical Xm&Eval Comprhnsv Estab Pt 1/> 75906 ? 3.?Bilateral regular astigmatism Stable OU,??Gave new spec Rx Ordered: Determination Refractive State 50831 Ophthalmological Medical Xm&Eval Comprhnsv Estab Pt 1/> 04534 ? Extracted from:Title: Office Clinic Note - [...] concerns. Ordered: Office Visit Level 3 Est 85610 ? 2.?Vaginal pain ?Pt presents with c/o [...] EPI P5897 Office Visit Level 3 Est 50730 ? 3.?Menstrual cramps Pt presents with c/o [...] concurred.? Ordered: Office Visit Level 3 Est 18872 ? 4.?Papanicolaou smear taken Ordered: Cytologic [facility]WEAR WEL[facility] 6280 Office Visit Level 3 Est 08729 ? 5.?Repeated prescription ?BC refilled as previously prescribed. Ordered: Microgestin 08/25 oral tablet, 1 tab(s), Oral, Daily, # 84 tab(s), 3 total refill(s), Maintenance, 1 tab(s) Oral Daily, Pharmacy: [facility] [Federal Rx: #84 last filled 12/20/20] Office Visit Level 3 Est 44150 ? Extracted from:Title: Headache F/U - Office [...] HAYES diary review. Pt will be leaving [facility] Jul and flying to [place] for the holidays. 5. Daily neck stretches [...] ? Ordered: Office Visit Level 3 Est 07906 ? Extracted from:Title: Ambulatory Patient Education Author: [...] HAYES diary review. Pt will be leaving [facility] Jul and flying to [place] for the holidays. 5.? Daily neck stretches - sports med handout provided 6.? Wear glasses when watching TV ? May consider daily prophylactic?if frequent HAYES s . Seek ER care for severe HAYES, vision changes, neuro deficits, fever, neck stiffness, trouble moving or speaking, any other severe/worsening sx. ??Will consider referral to Neurology if symptoms persist despite medication management. ? 12/09/2024 0006[facility] Functional Status Combined list of recent functional and cognitive assessments recorded at [employer] ([facility]VA Functional [place] Measurement (FIM) Scale: 1 = Total Assistance (Subject = 0% +), 2 = Maximal Assistance (Subject = 25% +), 3 = Moderate Assistance (Subject = 50% +), 4 = Minimal Assistance (Subject = 75% +), 5 = Supervision, 6 = Modified [place] (Device), 7 = Complete [place] (Timely, Safely). Assessment Date/Time Source Assessment Type Assessment Skill Assessment Score Assessment Details No data available for this section
== END 2024-12-10 08:11 | disposition home or self-care (01) ==
LOC: HO.HWSM 14:08
PROVIDERS: Visit Provider Advanced Practice Midwife
DX: Z01.419 Encounter for gynecological examination (general) (routine) without abnormal findings (principal)
CPT/HCPCS: 99385; 99459

== ENCOUNTER → 2024-12-09 14:08 | Outpatient (BNVA) | payer OTHER, SELFPAY | PROVIDERS: Visit Provider Advanced Practice Midwife | DX: Z01.419 Encounter for gynecological examination (general) (routine) without abnormal findings (principal) | CPT/HCPCS: 99385; 99459 ==